=== PATIENT | female | born 1955 | race Caucasian/White ===

== ENCOUNTER 2025-04-03 10:27 | Inpatient (IN) | payer MEDICARE, SELFPAY ==
[2025-04-03] VITALS (25 sets, daily range): BP systolic 140–250; BP diastolic 82–126; PULSE 79–113; RESP 13–21; TEMP 36.4–36.9; O2SAT 96–99; BMI 39.6; BMI 34.2
--- NOTE | 2025-04-03 10:31 | CT_ITS ---
WS: [id number] CT HEAD TECHNIQUE: Noncontrast CT of the head obtained from the skullbase to the vertex. CLINICAL INFORMATION: Symptoms of acute stroke COMPARISON: None. DLP: [address] scans at [facility] use at least one of these dose optimization techniques: automated exposure control; mA and/or kV adjustment per patient size (includes targeted exams where dose is matched to clinical indication); or iterative reconstruction. FINDINGS: No evidence of intracranial hemorrhage or mass effect. Ventricular system and basal cisterns are patent. Mild to moderate small vessel changes with mild parenchymal volume loss. No extra-axial fluid collections. No evidence of mass or mass effect. Vascular calcification Paranasal sinuses and mastoid air cells are well aerated. .Normal visualized soft tissues. CT/CT head thrombolytic 93837 IMPRESSION: 1. No evidence of intracranial hemorrhage or mass effect. 2. Mild to moderate small vessel changes. Only mild parenchymal volume loss. 3. Vascular calcification. 4. No acute intracranial findings. Notified Ayan Antonio DO at 04/03/2025 10:55 AM.
[2025-04-03 10:38] LABS: Glucose Point of Care 345 mg/dL (70-110)
--- NOTE | 2025-04-03 10:38 | ED_ITS ---
HPI - Neuro Symptoms/Deficit 2 General: Chief Complaint: Neuro Symptoms/Deficit Stated Complaint: n/v dizziness Time Seen by Provider: 04/03/25 10:30 History of Present Illness: 69-year-old female presents to the emerg ency room with complaints of dizziness and nausea left-sided numbness. She states it began shortly after she got out of bed just before 9 AM this morning hour and a half prior to arrival here by ambulance. She has had TIAs in the past she is supposed to be on Plavix and aspirin but has not been taking those. Her biggest complaint is dizziness and nausea. Initial abbreviated NIH is 0. Associated symptoms: Deny chest pain Related Data Home Medications ?Medication ?Instructions ?Recorded ?Confirmed No Known Home Medications 04/03/2503/19 Allergies Allergy/AdvReac Type Severity Reaction Status Date / Time ibuprofen Allergy Unknown Verified 04/03/25 11:24 Penicillins Allergy Unknown Verified 04/03/25 11:24 Review of Systems 2 Const: Denies: fever(s) or chills Card: Denies: chest pain Resp: Denies: dyspnea GI: Denies: abdominal pain : Denies: dysuria, urinary frequency or urinary urgency Musc: Denies: neck pain or back pain Skin/Breast: Denies: rash PFSH ED 2 PFSH: Medical History (Updated 04/03/25 @ 17:16 by Ayan Antonio DO) 3 para 3 History of gastric ulcer in her 40s TIA (transient ischemic attack) Diabetes mellitus, type II Hypertension Surgical History (Updated 04/03/25 @ 13:41 by Lissette Collazo MD) History of x one Family History (Updated 04/03/25 @ 13:42 by Lissette Collazo MD) Father Stroke Mother Memory changes Hip fracture Social History (Updated 04/03/25 @ 13:44 by Lissette Collazo MD) Smoking and tobacco/nicotine status: former use of tobacco/nicotine Alcohol intake: never Substance/Drug Use: never Additional social history: Smoked for 2 years, years ago Relocated from [facility] to [place] in ~2023, lives with youngest daughter NIH stroke score 2 NIHSS: Level Of Consciousness - 1a: 0 Level Of Consciousness Questions - 1b: Both Correct Level Of Consciousness Commands - 1c: Both Correct Best Gaze - 2: Normal Visual Smith - 3: No Visual Loss Facial Palsy - 4: N ormal Motor Arm Right - 5: No Drift Motor Arm Left - 5: No Drift Motor Leg Right - 6: No Drift Motor Leg Left - 6: No Drift Limb Ataxia - 7: A bsent Sensory - 8: Mild To Moderate Loss Best Language - 9: No Aphasia Dysarthia - 10: Normal Extinction And Inattention - 11: 0 Score: Total Score: 1 Physical Exam 2 Const: COMMON NORMALS: no acute distress GENERAL APPEARANCE: cooperative and comfortable ORIENTATION/CONSCIOUSNESS: Yes awake, Yes oriented to person, Yes oriented to place and Yes oriented to time HENMT: COMMON NORMALS: normocephalic, atraumatic and hearing grossly normal bilaterally HEAD & SCALP: normocephalic and atraumatic Resp: COMMON NORMALS: normal respiratory effort, No retractions, No use of accessory muscles and clear to auscultation bilaterally AUSCULTATION: clear to auscultation bilaterally Cardio: COMMON NORMALS: regular rate, regular rhythm and No murmurs present (Cardio) RATE: regular rate RHYTHM: regular rhythm GI: COMMON NORMALS: Soft to palpation and No hepatosplenomegaly present A USCULTATION: Yes normoactive bowel sounds PALPATION: Yes Soft to palpation, No Tenderness to palpation present (GI), No Guarding due to palpation present (GI) and Yes No hepatosplenomegaly present Extremity: COMMON NORMALS: normal to inspection, capillary refill normal, no clubbing, cyanosis or edema, no calf tenderness and no pedal edema Neuro: SENSORIUM/ORIENTATION: Yes oriented to person, Yes oriented to place and Yes oriented to time Skin: COMMON NORMALS: no rashes or lesions noted GENERAL SKIN EXAM: no rashes or lesions noted Course 2 Vital Signs: Vital signs: Vital Signs Temperature 97.5 F L 04/03/25 14:35 Pulse Rate 104 H 04/03/25 15:05 Respiratory Rate 14 04/03/25 15:05 Blood Pressure 140/97 04/03/25 15:05 Pulse Oximetry 99 04/03/25 15:05 Oxygen Delivery Me thod Room Air 04/03/25 14:35 MDM - Neuro Symptoms/Deficit Medical Decision Making Patient's NIH was below the best I could get her with a 1. However I am concerned that she has a posterior stroke asked the parents to return call stroke team to see her via telehealth they felt that she had a little bit of left arm and left leg drift. She does definitely have some leftward nystagmus. She got some slurring of her words but this is after Compazine. Nayeli did recommend because of the symptoms of posterior stroke that we go ahead and give TNKase. There was a significant delay to getting of the TNKase to get her blood pressure controlled. Ultimately we were able to do so. Patient was given TNKase will admit to ICU discussed with hospitalist orders written Lab Data 04/03/25 10:15 04/03/25 10:[address] 04/03/25 10:31 IMPRESSION: 1. No evidence of intracranial hemorrhage or mass effect. 2. Mild to moderate small vessel changes. Only mild parenchymal volume loss. 3. Vascular calcification. 4. No acute intracranial findings. Notified Ayan Antonio DO at 04/03/2025 10:55 AM. Head/Neck CTA 04/03/25 12:49 IMPRESSION: Unremarkable head and neck CTA Laboratory Results WBC 9.06 10^3/uL (3.29-11.43) 04/03/25 10:15 RBC 4.98 10^6/uL (3.85-5.65) 04/03/25 10:15 Hgb 14.50 g/dL (11.27-16.99) 04/03/25 10:15 Hct 41.7 % (36-47) 04/03/25 10:15 MCV 83.7 fl (85-98) L 04/03/25 10:15 MCH 29.1 pg (27-33) 04/03/25 10:15 MCHC 34.8 g/dL (30-55) 04/03/25 10:15 RDW 12.6 % (12.1-15.1) 04/03/25 10:15 Plt Count 243 10^3/cmm (157-399) 04/03/25 10:15 MPV 12.7 fL (7.4-10.4) H 04/03/25 10:15 Neut % (Auto) 56.6 % 04/03/25 10:15 Lymph % (Auto) 35.8 % 04/03/25 10:15 [place] % (Auto) 4.3 % 04/03/25 10:15 Eos % (Auto) 2.2 % 04/03/25 10:15 Baso % (Auto) 0.2 % 04/03/25 10:15 Neut # (Auto) 5.13 10^3/uL (1.8-7.7) 04/03/25 10:15 Lymph # (Auto) 3.2 10^3/uL (0.8-4.8) 04/03/25 10:15 [place] # (Auto) 0.4 10^3/uL (0.2-0.9) 04/03/25 10:15 Eos # (Auto) 0.2 10^3/uL (0.0-0.8) 04/03/25 10:15 Baso # (Auto) 0.0 10^3/uL (0.0-0.1) 04/03/25 10:15 Nucleated RBC % (auto) 0 % 04/03/25 10:15 Nucleated RBCs # 0.0 /100WBC 04/03/25 10:15 PT 12.20 SECONDS (12.1-14.9) 04/03/25 10:15 INR 0.85 (0.8-1.2) 04/03/25 10:15 APTT 22.9 SECONDS (23.9-36.7) L 04/03/25 10:15 Sodium 138 mmol/L (136-145) 04/03/25 10:15 Potassium 3.5 mmol/L (3.5-5.1) 04/03/25 10:15 Chloride 102 mmol/L (98-107) 04/03/25 10:15 Carbon Dioxide 19 mmol/L (22-29) L 04/03/25 10:15 Anion Gap 20.5 (5-19) H 04/03/25 10:15 BUN 19 mg/dL (8-23) 04/03/25 10:15 Creatinine 0.7 mg/dL (0.5-0.9) 04/03/25 10:15 GFR Calculation 83.5 mL/min (90-130) L 04/03/25 10:15 Glucose 324 mg/dL (65-115) H 04/03/25 10:15 POC Glucose 345 mg/dL (70-110) H 04/03/25 10:33 Calculated Osmolality 301 mOsm/kg (285-295) H 04/03/25 10:15 Calcium 9.7 mg/dL (8.5-10.5) 04/03/25 10:15 Total Bilirubin 0.5 mg/dL (0.15-1.2) 04/03/25 10:15 AST 11 U/L (0-32) 04/03/25 10:15 ALT 14 U/L (0-33) 04/03/25 10:15 Alkaline Phosphatase 130 U/L (35-105) H 04/03/25 10:15 Total Protein 7.8 g/dL (6.6-8.7) 04/03/25 10:15 Albumin 4.3 g/dL (3.5-5.2) 04/03/25 10:15 Globulin 3.5 g/dL (1.3-4.6) 04/03/25 10:15 All radiology interpretation(s) finalized by discharge Discharge Plan Discharge Patient Disposition: Admitted As Inpatient Admit Provider: Lissette Collazo Clinical Impression: Posterior circulation stroke, Hypertension, Diabetes mellitus, type II Condition: Stable Coding Level of Care Code ED Ripening Room Operator for Elise Rhoades
[2025-04-03 10:39] LABS: Basophils % 0.2 %; Eosinophils # 0.2 10^3/uL (0.0-0.8); Eosinophils % 2.2 %; Hematocrit 41.7 % (36-47); Lymphocytes # 3.2 10^3/uL (0.8-4.8); Lymphocytes % 35.8 %; Mean Corpuscular HGB Conc 34.8 g/dL (30-55); Mean Corpuscular Hemoglobin 29.1 pg (27-33); Mean Corpuscular Volume 83.7 fl (85-98); Mean Platelet Volume 12.7 fL (7.4-10.4); Monocytes # 0.4 10^3/uL (0.2-0.9); Monocytes % 4.3 %; Neutrophils # 5.13 10^3/uL (1.8-7.7); Neutrophils % 56.6 %; Nucleated Red Blood Cells % 0 %; Platelet Count 243 10^3/cmm (157-399); Red Blood Count 4.98 10^6/uL (3.85-5.65); Red Cell Distribution Width 12.6 % (12.1-15.1); White Blood Count 9.06 10^3/uL (3.29-11.43)
--- NOTE | 2025-04-03 10:52 | ECG_ITS ---
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 Measurements Intervals [place] Rate: 84 P: 63 NC: 171 QRS: -30 QRSD: 95 T: 63 QT: 393 QTc: 467 Interpretive Statements SINUS RHYTHM BORDERLINE LEFT AXIS DEVIATION [QRS AXIS < -20] No previous ECG available for comparison Electronically Signed On 04-03-2025 21:57:30 CDT by Cuauhtemoc Peace M.D. [email or web address]
[2025-04-03 11:01] LABS: INR 0.85 (0.8-1.2)
[2025-04-03 11:02] LABS: Partial Thromboplastin Time 22.9 SECONDS (23.9-36.7)
--- NOTE | 2025-04-03 11:05 | DCPLANNER ---
spoke to [facility] tele stroke at 1105. gave patient information and they said they would call back with
[2025-04-03 11:07] LABS: Alanine Aminotransferase 14 U/L (0-33); Albumin Level 4.3 g/dL (3.5-5.2); Alkaline Phosphatase 130 U/L (35-105); Anion Gap 20.5 (5-19); Aspartate Amino Transferase 11 U/L (0-32); Blood Urea Nitrogen 19 mg/dL (8-23); Calcium 9.7 mg/dL (8.5-10.5); Carbon Dioxide 19 mmol/L (22-29); Chloride 102 mmol/L (98-107); Creatinine Clr Calc Pharmacy 74.7961; Globulin 3.5 g/dL (1.3-4.6); Glomerular Filtration Rate 83.5 mL/min (90-130); Glucose 324 mg/dL (65-115); Osmolality Calculated 301 mOsm/kg (285-295); Potassium 3.5 mmol/L (3.5-5.1); Sodium 138 mmol/L (136-145); Total Bilirubin 0.5 mg/dL (0.15-1.2); Total Protein 7.8 g/dL (6.6-8.7)
[2025-04-03] MEDS: prochlorperazine 10 mg/2 mL Inj IVP (11:29)
[2025-04-03] MEDS: hyDRALAzine 20 mg/mL INJ 1 mL 10 MG IVP (11:29)
[2025-04-03] MEDS: labetalol 5 mg/mL SDV 20mL 10 MG IVP (11:54)
--- NOTE | 2025-04-03 12:09 | PC.PHAR ---
Pts' daughter showed rx bottles (all are old fills) form Meloxicam 7.5mg daily, Simvastatin 40 mg daily, and Metformin 1000mg bid. Pt states she moved here and has not been established anywhere and has not taken any medications for 3 to 4 months. I did not add these medications due to them being so old.
[2025-04-03] MEDS: nicardipine 20 MG/200 ML PREMIX 50 MG IV (12:17)
--- NOTE | 2025-04-03 12:31 | PC.NURSE ---
PROVIDER AWARE OF BLOOD PRESSURE AND ORDERED TO GIVE TNKASE DUE TO BEING ON CARDENE DRIP.
[2025-04-03] MEDS: tenecteplase 50mg Kit (STROKE) 25 MG IVP (12:32)
--- NOTE | 2025-04-03 12:41 | PC.NURSE ---
VERBAL ORDER FROM DR. SANTACRUZ TO DECREASE CARDENE TO 2.5 MG DUE TO BP OF 148/91.
--- NOTE | 2025-04-03 12:49 | CT_ITS ---
WS: [id number] CTA HEAD AND NECK TECHNIQUE: Contrast enhanced CTA of the head and neck with coronal and sagittal reformatted images and maximum intensity projection (MIP) images. NASCET criteria utilized. CLINICAL INFORMATION: acute CVA COMPARISON: None. DLP: 80.[address] scans at [facility] use at least one of these dose optimization techniques: automated exposure control; mA and/or kV adjustment per patient size (includes targeted exams where dose is matched to clinical indication); or iterative reconstruction. FINDINGS: RIGHT: Tortuous RIGHT cervical ICA. No significant stenosis. LEFT: Tortuous LEFT cervical ICA. No significant stenosis. LEFT dominant vertebral artery. Smaller but patent RIGHT vertebral artery. Basilar artery is patent. INTRACRANIAL CTA: Basilar artery is patent. 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 Both ICAs are patent at the skull base. Patent anterior communicating artery. Normal vascularity to the [place] territory. Normal vascularity to the MCA territories bilaterally. No evidence of proximal flow-limiting stenosis. CT/CT angio headne* [id number] IMPRESSION: Unremarkable head and neck CTA
--- NOTE | 2025-04-03 13:01 | PM.HP ---
Providers/Chief Complaint Admitting Physician: Lissette Collazo MD Primary Care Provider: none Chief Complaint: n/v dizziness History of Present Illness Nedra Alvarez is a 69 year old female with a history of hypertension, diabetes mellitus, and prior TIA (transient ischemic attack) presenting with sudden onset dizziness and vomiting that began approximately at 9 a.m. today She reports that symptoms started after waking up and performing normal morning activities, including opening the door for fresh air and hugging her dog. The dizziness rapidly worsened, leading to vomiting at the kitchen sink which was nearby. She had difficulty walking to the sink, having to hold on to things, and was unable to walk in a straight line. There was no report of double vision or other vision changes, but the patient noted left arm numbness (initially described as left elbow, but clarified as the whole arm down to the the hand) and later developed left leg numbness and weakness, which began in the ambulance. Both left arm and leg symptoms persist. Mrs Alvarez also experienced transient speech difficulty (thick-tongued) about 15?20 minutes prior to my interview in the ER, but this has since resolved. The patient denies recent headaches, chest pain, difficulty breathing, or other episodes of nausea or vomiting prior to today. There is a history of scant specs of blood seen on tissue when wiping recently, attributed to hemorrhoids, and a remote history of a bleeding gastric ulcer in her 40s. She reports frequent urination at night (usually once, sometimes twice), which has been ongoing for a while. No recent changes in bowel movements, no blood in stool except for the recent minor rectal bleeding, and no recent joint swelling or lower extremity edema. The patient reports sleeping a lot, which is described as typical for their family. Mrs Alvarez moved to the [place] from [place], [place], last March or April and lives with her youngest daughter. who is here with her. The patient has not established primary care locally and has not been taking prescribed medications since October due to concerns about running out and potential side effects. Her father had strokes when alive. Review of Systems General: Reports: Other (ROS as per HPI or as otherwise noted here) Medications/Allergies Home Medications ?Medication ?Instructions ?Recorded ?Confirmed ?Last Taken ?Type No Known Home Medications 04/03/25 04/03/25 Unknown History Allergies Allergy/AdvReac Type Severity Reaction Status Date / Time ibuprofen Allergy Unknown Verified 04/03/25 11:24 Penicillins Allergy Unknown Verified 04/03/25 11:24 PFSH Acute PFSH: Medical History (Updated 04/03/25 @ 20:12 by Lissette Collazo MD) 3 para 3 History of gastric ulcer in her 40s TIA (transient ischemic attack) Diabetes mellitus, type II Hypertension Surgical History (Updated 04/03/25 @ 13:41 by Lissette Collazo MD) History of x one Family History (Updated 04/03/25 @ 13:42 by Lissette Collazo MD) Father Stroke Mother Memory changes Hip fracture Social History (Updated 04/03/25 @ 13:44 by Lissette Collazo MD) Smoking and tobacco/nicotine status: former use of tobacco/nicotine Alcohol intake: never Substance/Drug Use: never Additional social history: Smoked for 2 years, years ago Relocated from [facility] to [place] in ~2023, lives with youngest daughter Vitals/I&O/Wt Last Vital Signs Temp 97.6 F 04/03/25 10:29 Pulse 96 04/03/25 12:48 Resp 20 H 04/03/25 12:48 BP 164/126 04/03/25 12:48 Pulse Ox 98 04/03/25 12:20 O2 Del Method Room Air 04/03/25 12:20 04/02/25 04/03/25 04/03/25 22:59 06:59 14:59 Intake Total 19.167 / 19.167 Balance 19.167 / 19.167 Weight last 48 hrs Weight 98.43 kg Physical Exam Narrative: Patient is awake and able to provide history but lying in a darkened room with her eyes closed and keeping her head straight. She is lying flat on her back. She can open her eyes for short periods of time but prefers to keep them closed. She is alert and oriented to person, place and situation. Eyes are deviated to the right with some nystagmus noted. Decreased acuity in the right visual smith without turning her head. Face with loss of left-sided facial creases at rest that is not evident when she smiles. Neck is supple. Lungs are clear to auscultation. Cardiovascular exam reveals a regular rate and rhythm. No murmurs noted. Abdomen is soft, nontender with positive bowel sounds. Extremities no pitting edema. Left toe is upgoing, right downgoing left lower extremity drift is noted left lower extremity is weaker than right lower extremity. Sensation is decreased to light touch in the left lower extremity compared to the right up to the thigh. Decreased sensation also noted in the left upper extremity versus the right with slightly decreased left hand assembler type bar and segment. No drift noted to the upper extremities. No abnormal movements. No vomiting during my examination but has had some Compazine. NIH stroke scale score per my examination 6. Data 04/03/25 10:15 04/03/25 10:15 Other Labs: Radiology Impressions Head CT 04/03/25 10:31 IMPRESSION: 1. No evidence of intracranial hemorrhage or mass effect. 2. Mild to moderate small vessel changes. Only mild parenchymal volume loss. 3. Vascular calcification. 4. No acute intracranial findings. Notified Ayan Antonio DO at 04/03/2025 10:55 AM. Laboratory Results WBC 9.06 10^3/uL (3.29-11.43) 04/03/25 10:15 RBC 4.98 10^6/uL (3.85-5.65) 04/03/25 10:15 Hgb 14.50 g/dL (11.27-16.99) 04/03/25 10:15 Hct 41.7 % (36-47) 04/03/25 10:15 MCV 83.7 fl (85-98) L 04/03/25 10:15 MCH 29.1 pg (27-33) 04/03/25 10:15 MCHC 34.8 g/dL (30-55) 04/03/25 10:15 RDW 12.6 % (12.1-15.1) 04/03/25 10:15 Plt Count 243 10^3/cmm (157-399) 04/03/25 10:15 MPV 12.7 fL (7.4-10.4) H 04/03/25 10:15 Neut % (Auto) 56.6 % 04/03/25 10:15 Lymph % (Auto) 35.8 % 04/03/25 10:15 [place] % (Auto) 4.3 % 04/03/25 10:15 Eos % (Auto) 2.2 % 04/03/25 10:15 Baso % (Auto) 0.2 % 04/03/25 10:15 Neut # (Auto) 5.13 10^3/uL (1.8-7.7) 04/03/25 10:15 Lymph # (Auto) 3.2 10^3/uL (0.8-4.8) 04/03/25 10:15 [place] # (Auto) 0.4 10^3/uL (0.2-0.9) 04/03/25 10:15 Eos # (Auto) 0.2 10^3/uL (0.0-0.8) 04/03/25 10:15 Baso # (Auto) 0.0 10^3/uL (0.0-0.1) 04/03/25 10:15 Nucleated RBC % (auto) 0 % 04/03/25 10:15 Nucleated RBCs # 0.0 /100WBC 04/03/25 10:15 PT 12.20 SECONDS (12.1-14.9) 04/03/25 10:15 INR 0.85 (0.8-1.2) 04/03/25 10:15 APTT 22.9 SECONDS (23.9-36.7) L 04/03/25 10:15 Sodium 138 mmol/L (136-145) 04/03/25 10:15 Potassium 3.5 mmol/L (3.5-5.1) 04/03/25 10:15 Chloride 102 mmol/L (98-107) 04/03/25 10:15 Carbon Dioxide 19 mmol/L (22-29) L 04/03/25 10:15 Anion Gap 20.5 (5-19) H 04/03/25 10:15 BUN 19 mg/dL (8-23) 04/03/25 10:15 Creatinine 0.7 mg/dL (0.5-0.9) 04/03/25 10:15 GFR Calculation 83.5 mL/min (90-130) L 04/03/25 10:15 Glucose 324 mg/dL (65-115) H 04/03/25 10:15 POC Glucose 345 mg/dL (70-110) H 04/03/25 10:33 Calculated Osmolality 301 mOsm/kg (285-295) H 04/03/25 10:15 Calcium 9.7 mg/dL (8.5-10.5) 04/03/25 10:15 Total Bilirubin 0.5 mg/dL (0.15-1.2) 04/03/25 10:15 AST 11 U/L (0-32) 04/03/25 10:15 ALT 14 U/L (0-33) 04/03/25 10:15 Alkaline Phosphatase 130 U/L (35-105) H 04/03/25 10:15 Total Protein 7.8 g/dL (6.6-8.7) 04/03/25 10:15 Albumin 4.3 g/dL (3.5-5.2) 04/03/25 10:15 Globulin 3.5 g/dL (1.3-4.6) 04/03/25 10:15 Urine Color Yellow (Yellow) 04/03/25 12:55 Urine Appearance Clear (CLEAR) 04/03/25 12:55 Urine pH 5.0 (5-7) 04/03/25 12:55 Ur Specific [place] 1.019 (1.005-1.030) 04/03/25 12:55 Urine Protein Negative (Negative) 04/03/25 12:55 Urine Glucose (UA) 3+ (Normal) H 04/03/25 12:55 Urine Ketones 1+ (Negative) H 04/03/25 12:55 Urine Blood Negative (Negative) 04/03/25 12:55 Urine Nitrate Negative (Negative) 04/03/25 12:55 Urine Bilirubin Negative (Negative) 04/03/25 12:55 Urine Urobilinogen 0.2 mg/dL (Negative) 04/03/25 12:55 Ur Leukocyte Esterase 2+ (Negative) A 04/03/25 12:55 Urine RBC 0-2 /hpf (0-2) 04/03/25 12:55 Urine WBC 11-20 /hpf (0-5) H 04/03/25 12:55 Ur Squamous Epith Cells 6-10 /hpf (0-5) 04/03/25 12:55 Amorphous Sediment Not Reportable 04/03/25 12:55 Urine Bacteria 1+ /hpf (NONE) H 04/03/25 12:55 Hyaline Casts 1.21 /lpf 04/03/25 12:55 Urine Opiates Screen Negative ng/mL (Negative) 04/03/25 12:55 Ur Barbiturates Screen Negative ng/mL (Negative) 04/03/25 12:55 Ur Phencyclidine Scrn Negative ng/mL (Negative) 04/03/25 12:55 Ur Amphetamines Screen Negative ng/mL (Negative) 04/03/25 12:55 U Benzodiazepines Scrn Negative ng/mL (Negative) 04/03/25 12:55 Urine Cocaine Screen Negative ng/mL (Negative) 04/03/25 12:55 U Marijuana (THC) Screen Negative ng/mL (Negative) 04/03/25 12:55 EKG 1: I personally reviewed and interpreted this EKG as follows: My Interpretation: No acute ST segment changes, normal sinus rhythm A&P Assessment and plan (1) CVA (cerebral vascular accident): The patient presented with sudden onset dizziness, vomiting, left-sided numbness and weakness. She also had transient speech difficulty though that could have been from compazine administration. The clinical picture is consistent with an acute ischemic stroke, likely involving the posterior circulation given the dizziness and vomiting. The patient has a history of TIA and multiple vascular risk factors. She has not had primary care access or medication for her hypertension, diabetes for about 6 months. - Admit to ICU for close monitoring - S/P TNK after blood pressure management with nicardipine initiated - Maintain systolic blood pressure in the range of 160?185 mmHg per protocol - Repeat head CT scan tomorrow to assess for bleeding - Obtain echocardiogram to evaluate cardiac source of embolism - Obtain carotid imaging to assess for vascular disease - Check lipid panel and A1c - Initiate antiplatelet therapy with clopidogrel; has ibuprofen allergy - Monitor for signs of bleeding, including hemorrhoidal and mucosal bleeding - Serial neuro examinations - PT/OT/ST evaluations - Symptomatic management of nausea and dizziness as needed - Reviewed plans of care and provided education to patient and daughter in the room (2) Hypertension: The patient has a history of primary hypertension, previously managed with losartan, but has not been taking antihypertensive medications since October. Upon presentation with hypertensive urgency/emergency in the context of acute stroke, and required nicardipine drip ultimately after initial labetalol to allow for TNKase administration. Typically allow permissive hypertension to optimize cerebral perfusion. Uncontrolled hypertension is a significant risk factor for stroke. - Current goal to maintain a systolic range of 160?185 mmHg during the acute period post-thrombolysis - Monitor blood pressure closely and titrate nicardipine as needed to maintain target range - Pending results of swallow evaluation will consider initiation of oral losartan which she had previously taken to manage her blood pressure (3) Diabetes mellitus, type II: The patient has a history of diabetes mellitus, previously advised to take metformin but was not adherent due to concerns about side effects. The patient has not been on any diabetes medication since October and has been attempting dietary management. Diabetes, uncontrolled, is a significant risk factor for stroke recurrence and will require ongoing management. - Monitor blood glucose during hospitalization - Sliding scale low dose insulin for now - Check A1c - Reassess outpatient diabetes management options after acute stroke period - Recommend follow-up with primary care for long-term diabetes management (4) Hemorrhoids: Mrs Alvarez reports recent minor rectal bleeding when wiping recently, attributed to hemorrhoids. There is a remote history of a bleeding ulcer in her 40s. She also reports bleeding from gums when brushing teeth lately. - Monitor for increased rectal bleeding and gum bleeding - Advise gentle oral hygiene to minimize gum trauma - Nursing staff to observe for signs of bleeding and notify provider if bleeding increases Plan Borderline AG with glucosuria and ketonuria, elevated BS - IVFs, recheck labs in am; could be related to vomiting and GI losses but with untreated diabetes at risk for DKA Elevated Alkaline phosphatase - recheck LFTs in am - Admit to ICU - SCDs for DVT prophylaxis after TNKase - Peripheral IVs - Telemetry monitoring - IVFs - Recommended establishing care with a primary care provider after discharge - Encouraged resumption of management of hypertension and diabetes to decrease risk of stroke recurrence - Lifestyle modifications for stroke prevention reviewed briefly and stroke education provided - Full Code PDMP PDMP Reviewed: Last Reviewed 04/03/25 20:13 by Lissette Collazo MD Attestations Medical Necessity Statement*: Anticipated stay greater than two midnights in this patient presenting with what appears to be posterior circulation stroke and is status post TNKase. In addition she had hypertensive emergency necessitating initiation of nicardipine drip. She has a history of hypertension and diabetes and has not been on management since October of this year. She has no primary care established locally after relocating about a year ago. In addition she has elevated blood sugar and borderline anion gap elevation from either GI losses or potential early DKA. Without acute care management as described at high risk of continued clinical decline from stroke, uncontrolled hypertension and untreated diabetes ruptured including possibility of . Requires ICU level care currently with continuous nifedipine infusion, close blood pressure monitoring to allow titration, usual post TNKase neurological monitoring and associated post stroke workup along with IV fluids and repeat electrolytes in addition to telemetry monitoring. and High Time for a total of 90 minutes, includes reviewing past or interval history, examining/interviewing patient, placing orders, counseling patient/family/other support, discussing plan of care with staff and documenting encounter Diagnoses Cerebrovascular accident (CVA) due to thrombosis of right posterior cerebral artery I63.331 CVA mechanism: thrombosis Precerebral and cerebral artery: posterior cerebral artery Laterality of affected vessel: right Other secondary hypertension I15.8 Hypertension type: other secondary hypertension Type 2 diabetes mellitus with hyperglycemia, without long-term current use of insulin E11.65 Diabetes mellitus terminal gauger insulin use: without penitentiary use Diabetes mellitus complication status: with hyperglycemia Grade I hemorrhoids K64.0 Hemorrhoid type: first degree NIH stroke score NIHSS Level Of Consciousness - 1a: 0 Level Of Consciousness Questions - 1b: Both Correct Level Of Consciousness Commands - 1c: Both Correct Best Gaze - 2: Partial Gaze Palsy Visual Smith - 3: Partial Hemianopia Facial Palsy - 4: Normal Motor Arm Right - 5: No Drift Motor Arm Left - 5: Drift Motor Leg Right - 6: No Drift Motor Leg Left - 6: Effort Against [place] Limb Ataxia - 7: Absent Sensory - 8: Mild To Moderate Loss (Left upper and lower) Best Language - 9: No Aphasia Dysarthia - 10: Normal Extinction And Inattention - 11: 0 Score Total Score: 6
--- NOTE | 2025-04-03 13:12 | PC.NURSE ---
PER DR. BAZAN, LOWER CARDENE TO 2 MG DUE TO TARGET RANGE FOR BP
[2025-04-03 13:20] LABS: Bilirubin Urine Negative (Negative); Blood Urine Negative (Negative); Glucose Urine UA 3+ (Normal); Ketones Urine 1+ (Negative); Leukocyte Esterase Urine 2+ (Negative); Nitrate Urine Negative (Negative); Protein Urine Negative (Negative); Specific Gravity, Urine 1.019 (1.005-1.030); Urine Appearance Clear (CLEAR); Urine Color Yellow (Yellow); Urobilinogen Urine 0.2 mg/dL (Negative)
[2025-04-03 13:22] LABS: Add Urine Microscopic? YES; Bacteria Urine 1+ /hpf; Hyaline Casts Urine 1.21 /lpf; RBC Urine 0-2 /hpf (0-2)
[2025-04-03 13:28] LABS: Amphetamines Screen Urine Negative (Negative); Barbiturates Screen Urine Negative (Negative); Benzodiazepines Screen Urine Negative (Negative); Cocaine Screen Urine Negative (Negative); Opiate Screen Urine Negative (Negative); PCP Screen Urine Negative (Negative); THC Screen Urine Negative (Negative)
[2025-04-03] MEDS: iohexol 350 mg/mL 500 mL Btl (per mL) IV (13:48)
--- NOTE | 2025-04-03 14:13 | USCV_ITS ---
Nedra Alvarez Age: 69 Gender: F : 1955 Exam Date: 04/03/2025 15:03 Ordering Phys: Lissette Collazo MD Technologist: Exam Location: [facility] [place] Indication: cva BP: 140 / 97 HR: 97 Rhythm: Sinus Technical Quality: Adequate MEASUREMENTS (Male / Female) Normal Values 2D ECHO LV Diastolic Diameter PLAX 3.5 cm 4.2 - 5.9 / 3.9 - 5.3 cm IVS Diastolic Thickness 1.3 cm 0.6 - 1.0 / 0.6 - 0.9 cm IVS Systolic Thickness 1.5 cm LVPW Diastolic Thickness 1.1 cm 0.6 - 1.0 / 0.6 - 0.9 cm LVPW Systolic Thickness 1.3 cm LVOT Diameter 2.1 cm LV Ejection Fraction 2D Teich 68.2 % LV Ejection Fraction MOD 4C 63.0 % LV Ejection Fraction MOD 2C 68.4 % LV Ejection Fraction 2C AL 68.0 % LA Diameter 3.2 cm RA Systolic Volume 4C AL 22.5 ml RA Systolic Volume 4C MOD 22.0 ml Aorta at Sinotubular Diameter 2.9 cm IVC Diameter 1.4 cm M-MODE LA Ao Ratio MM 1.2 AV Cusp Separation MM 2.4 cm DOPPLER AV Peak Velocity 159.0 cm/s LVOT Peak Velocity 116.0 cm/s AV Area Cont Eq vti 3.3 cm squared AV Area Cont Eq pk 2.4 cm squared MV Peak Velocity 134.0 cm/s MV Area PHT 5.0 cm squared Mitral E to A Ratio 0.6 TV Peak Velocity 184.5 cm/s TR Peak Velocity 201.0 cm/s TR Peak Gradient 16.2 mmHg TV Peak E Velocity 91.0 cm/s PV Peak Velocity 111.0 cm/s FINDINGS Left Ventricle Left ventricle is normal size. LV systolic function is normal with EF of 65-70%. No regional wall motion abnormalities are seen. Moderate left ventricular hypertrophy. Grade 1 diastolic dysfunction. Right Ventricle Normal in size and function Right Atrium Normal in size Left Atrium Normal in size Mitral Valve Structurally normal mitral valve. Aortic Valve Structurally normal aortic valve. No significant stenosis or regurgitation. Tricuspid Valve Mild tricuspid regurgitation. Pulmonary artery systolic pressure is normal Pulmonic Valve Not well visualized Pericardium Normal Aorta Normal in size IVC Appears to be normal CONCLUSIONS LV systolic function is normal with EF of 65-70% Moderate left ventricular hypertrophy Grade 1 diastolic dysfunction Mild tricuspid regurgitation Parth Arreola MD (Electronically Signed) Final Date: 05 April 2025 11:43 S
--- NOTE | 2025-04-03 15:13 | PC.NURSE ---
Patient's only concerns were that they are not able to swallow, tingling in their left peripheral extremities, and twitching in their right eye.
--- NOTE | 2025-04-03 15:41 | PC.NURSE ---
WASTED 5 ML OF TNKASE WITH AB [place]RA[place].
--- NOTE | 2025-04-03 16:19 | PC.NURSE ---
sales planning coordinator rounds @ [id number]- gave patient stroke education book
[2025-04-03 17:45] LABS: Glucose Point of Care 430 mg/dL (70-110)
[2025-04-03] MEDS: sodium chlor 0.45% +KCl 20 mEq 20 MEQ/1,000 ML BAG 75 MEQ IV (17:46)
[2025-04-03] MEDS: insulin lispro 100 unit/1 mL SUBCUT ×2 (17:46→21:47)
--- NOTE | 2025-04-03 18:55 | PC.NURSE ---
Patient only has one IV after one of the Ivs went bad in the CT scan. Because of the precautions for bleeding because of the TnKase administration another IV was not started.
[2025-04-03 19:44] LABS: Glucose Point of Care 349 mg/dL (70-110)
--- NOTE | 2025-04-03 21:12 | PC.NURSE ---
Dr. Collazo gave verbal orders to stop 0.45% NS 20 meq potassium due to incompatibility with nicardipine and pt only having one IV. New verbal order for 0.45% NS. She also agreed that the pt needs another IV and one attempt can be made to start a new IV but no more than one attempt.
[2025-04-03] MEDS: nicardipine 20 MG/200 ML PREMIX 25 MG IV (21:27)
[2025-04-03 21:46] LABS: Glucose Point of Care 348 mg/dL (70-110)
[2025-04-03] MEDS: sodium chloride 0.45% 1,000 ML 75 ML IV (21:49)
[2025-04-04] VITALS (49 sets, daily range): BP systolic 141–202; BP diastolic 74–121; PULSE 85–125; RESP 12–27; TEMP 36.6–38.3; O2SAT 95–99
[2025-04-04 04:01] LABS: Basophils % 0.1 %; Hematocrit 42.2 % (36-47); Lymphocytes # 1.6 10^3/uL (0.8-4.8); Lymphocytes % 11.7 %; Mean Corpuscular HGB Conc 34.4 g/dL (30-55); Mean Corpuscular Hemoglobin 28.5 pg (27-33); Mean Corpuscular Volume 82.9 fl (85-98); Mean Platelet Volume 12.6 fL (7.4-10.4); Monocytes # 0.6 10^3/uL (0.2-0.9); Monocytes % 4.6 %; Neutrophils # 11.63 10^3/uL (1.8-7.7); Neutrophils % 83.2 %; Nucleated Red Blood Cells % 0 %; Platelet Count 306 10^3/cmm (157-399); Red Blood Count 5.09 10^6/uL (3.85-5.65); Red Cell Distribution Width 12.8 % (12.1-15.1); White Blood Count 13.98 10^3/uL (3.29-11.43)
[2025-04-04 04:12] LABS: Estmated Average Glucose 269
[2025-04-04 04:22] LABS: Alanine Aminotransferase 13 U/L (0-33); Albumin Level 4.4 g/dL (3.5-5.2); Alkaline Phosphatase 108 U/L (35-105); Aspartate Amino Transferase 11 U/L (0-32); Blood Urea Nitrogen 18 mg/dL (8-23); Calcium 9.9 mg/dL (8.5-10.5); Carbon Dioxide 20 mmol/L (22-29); Chloride 102 mmol/L (98-107); Creatinine Clr Calc Pharmacy 69.0091; Globulin 3.6 g/dL (1.3-4.6); Glomerular Filtration Rate 71.5 mL/min (90-130); Glucose 306 mg/dL (65-115); Magnesium 1.8 mg/dL (1.7-2.3); Osmolality Calculated 297 mOsm/kg (285-295); Phosphorus 3.6 mg/dL (2.5-4.5); Sodium 137 mmol/L (136-145)
[2025-04-04 04:52] LABS: Chol HDL Ratio 5.44 mg/dL (0.0-4.40); Cholesterol 261 mg/dL (0-200); HDL Cholesterol 48 mg/dL (60-100); LDL Cholesterol Calculated 168 mg/dL (50-129); Triglycerides 224 mg/dL (0-150)
--- NOTE | 2025-04-04 04:56 | ECG_ITS ---
[facility] 2025-04-04 Pat Name: Nedra lAvarez Department: Room: [facility] Gender: Female Prescription Clerk: : 1955 Requested By: uLz Shelley Order Number: [id number] Annie MD: Cuauhtemoc Peace M.D. Measurements Intervals [place] Rate: 142 P: 70 MT: 112 QRS: -58 QRSD: 86 T: 76 QT: 370 QTc: 569 Interpretive Statements SINUS TACHYCARDIA WITH SHORT MT INTERVAL, POSSIBLE ATRIAL FLUTTER LEFT AXIS DEVIATION [QRS AXIS < -30] Compared to ECG 04/03/2025 10:52:09 Sinus rhythm no longer present Electronically Signed On 04-06-2025 06:19:50 CDT by Cuauhtemoc Peace M.D. [email or web address]
[2025-04-04] MEDS: nicardipine 20 MG/200 ML PREMIX 25 MG IV ×2 (05:05→23:16)
[2025-04-04 05:41] LABS: Total Bilirubin 0.7 mg/dL (0.15-1.2)
[2025-04-04 07:54] LABS: Glucose Point of Care 329 mg/dL (70-110)
[2025-04-04] MEDS: insulin lispro 100 unit/1 mL SUBCUT ×4 (08:36→22:48)
--- NOTE | 2025-04-04 09:00 | CT_ITS ---
WS: [id number] CT HEAD TECHNIQUE: Noncontrast CT of the head obtained from the skullbase to the vertex. CLINICAL INFORMATION: acute stroke COMPARISON: None. DLP: 1084.[address] scans at [facility] use at least one of these dose optimization techniques: automated exposure control; mA and/or kV adjustment per patient size (includes targeted exams where dose is matched to clinical indication); or iterative reconstruction. FINDINGS: No evidence of intracranial hemorrhage or mass effect. Ventricular system and basal cisterns are patent. Mild to moderate small vessel changes with mild parenchymal volume loss. No extra-axial fluid collections. No evidence of mass or mass effect. Vascular calcification Paranasal sinuses and mastoid air cells are well aerated. .Normal visualized soft tissues. CT/CT head wo con* [id number] IMPRESSION: 1. No evidence of intracranial hemorrhage or mass effect. 2. No acute intracranial findings. 3. Vascular calcification. 4. No change is appreciated since 04/03/2025.
--- NOTE | 2025-04-04 09:26 | PC.NURSE ---
spa coordinator rounds at 0815- patient resting quietly in room, patient updates appreciated by primary, RN
[2025-04-04] MEDS: sodium chloride 0.45% 1,000 ML 75 ML IV (11:44)
[2025-04-04 12:32] LABS: Glucose Point of Care 186 mg/dL (70-110)
--- NOTE | 2025-04-04 15:43 | PM.PN ---
Subjective Subjective: seen this am has nystagmus looking to the right right sided 6th nerve palsy numbness present on left side states she feels she is having double vision off nicardipine gtt now Vitals/I&O/Wt Last Vital Signs Temp 98.9 F 04/04/25 08:30 Pulse 108 H 04/04/25 14:00 Resp 16 04/04/25 14:00 BP 152/91 04/04/25 14:00 Pulse Ox 98 04/04/25 14:00 O2 Del Method Room Air 04/04/25 14:00 04/04/25 04/04/25 04/04/25 06:59 14:59 22:59 Intake Total 227.083 / 669.670 4758 / 1000 Output Total 300 / 1200 Balance -72.917 / -437.339 4370 / 1000 Weight last 48 hrs Weight 84.5 kg Weight 85 kg Weight 98.43 kg Physical Exam Narrative: General: Alert oriented x3, patient seen laying in bed appearing comfortable at this time. Reports double vision. HEENT: Normocephalic, atraumatic, EOMI, breathing breathing room air. Cardio: Regular rate rhythm, normal S1-S2, Respiratory: Clear to auscultation bilaterally no wheezes no rhonchi GI: Abdomen soft, nontender, nondistended, bowel sounds + Extremities: No edema bilateral lower extremities Neuro: Reports double vision, lateral rectus palsy right side, nystagmus when patient looks to the right, left-sided numbness slightly present., Activities Volunteer strength bilateral upper extremities equal, no drift noted to the upper extremities. No abnormal movements. Face appears symmetrical, no facial droop noted Data 04/04/25 03:40 04/04/25 03:40 A&P Assessment and plan (1) CVA (cerebral vascular accident): The patient presented with sudden onset dizziness, vomiting, left-sided numbness and weakness. She also had transient speech difficulty though that could have been from compazine administration. The clinical picture is consistent with an acute ischemic stroke, likely involving the posterior circulation given the dizziness and vomiting. The patient has a history of TIA and multiple vascular risk factors. She has not had primary care access or medication for her hypertension, diabetes for about 6 months. - Admit to ICU for close monitoring - S/P TNK after blood pressure management with nicardipine initiated - Maintain systolic blood pressure in the range of 160?185 mmHg per protocol - Repeat head CT scan tomorrow to assess for bleeding - Obtain echocardiogram to evaluate cardiac source of embolism - Obtain carotid imaging to assess for vascular disease - Check lipid panel and A1c - Initiate antiplatelet therapy with clopidogrel; has ibuprofen allergy - Monitor for signs of bleeding, including hemorrhoidal and mucosal bleeding - Serial neuro examinations - PT/OT/ST evaluations - Symptomatic management of nausea and dizziness as needed - Reviewed plans of care and provided education to patient and daughter in the room (2) Hypertension: The patient has a history of primary hypertension, previously managed with losartan, but has not been taking antihypertensive medications since October. Upon presentation with hypertensive urgency/emergency in the context of acute stroke, and required nicardipine drip ultimately after initial labetalol to allow for TNKase administration. Typically allow permissive hypertension to optimize cerebral perfusion. Uncontrolled hypertension is a significant risk factor for stroke. - Current goal to maintain a systolic range of 160?185 mmHg during the acute period post-thrombolysis - Monitor blood pressure closely and titrate nicardipine as needed to maintain target range - Pending results of swallow evaluation will consider initiation of oral losartan which she had previously taken to manage her blood pressure (3) Diabetes mellitus, type II: The patient has a history of diabetes mellitus, previously advised to take metformin but was not adherent due to concerns about side effects. The patient has not been on any diabetes medication since October and has been attempting dietary management. Diabetes, uncontrolled, is a significant risk factor for stroke recurrence and will require ongoing management. - Monitor blood glucose during hospitalization - Sliding scale low dose insulin for now - Check A1c - Reassess outpatient diabetes management options after acute stroke period - Recommend follow-up with primary care for long-term diabetes management (4) Hemorrhoids: Mrs Alvarez reports recent minor rectal bleeding when wiping recently, attributed to hemorrhoids. There is a remote history of a bleeding ulcer in her 40s. She also reports bleeding from gums when brushing teeth lately. - Monitor for increased rectal bleeding and gum bleeding - Advise gentle oral hygiene to minimize gum trauma - Nursing staff to observe for signs of bleeding and notify provider if bleeding increases Plan Borderline AG with glucosuria and ketonuria, elevated BS - IVFs, recheck labs in am; could be related to vomiting and GI losses but with untreated diabetes at risk for DKA Elevated Alkaline phosphatase - recheck LFTs in am - Admit to ICU - SCDs for DVT prophylaxis after TNKase - Peripheral IVs - Telemetry monitoring - IVFs - Recommended establishing care with a primary care provider after discharge - Encouraged resumption of management of hypertension and diabetes to decrease risk of stroke recurrence - Lifestyle modifications for stroke prevention reviewed briefly and stroke education provided - Full Code 04/04/2025 We will check post 24-hour TNKase CT scan. If no evidence of bleed we will start aspirin and Plavix Will start Lipitor once able to swallow Discussed with patient regarding possibility of PEG tube placement if she is unable to swallow going forward. Patient agreeable and okay with it. Discussed with neurology over the phone. We will give patient another 24 hours hopefully swallowing function improves. Awaiting speech therapy evaluation today Awaiting PT OT Continue normal saline however increased rate to 125 cc/h. Hemoglobin A1c 11.0. Continue sliding scale insulin every 6 hours. Lipid profile completed. Triglycerides 224, cholesterol 261, LDL 168. Patient has been slightly tachycardic this morning. Will give normal saline 1 L bolus. Check echo PT OT Blood glucose in a.m. 306. Will start on Lantus 8 units at bedtime as per 0.1 units/kg. Check MRI brain Will start on amlodipine 5 mg daily. PDMP PDMP Reviewed: Not Reviewed Attestations Medical Necessity Statement*: Requires further workup post TNKase care and for stroke. Diagnoses Cerebrovascular accident (CVA) due to thrombosis of right posterior cerebral artery I63.331 CVA mechanism: thrombosis Precerebral and cerebral artery: posterior cerebral artery Laterality of affected vessel: right Other secondary hypertension I15.8 Hypertension type: other secondary hypertension Type 2 diabetes mellitus with hyperglycemia, without long-term current use of insulin E11.65 Diabetes mellitus complication status: with hyperglycemia Diabetes mellitus [facility] insulin use: without assistant terminal manager use Grade I hemorrhoids K64.0 Hemorrhoid type: first degree
[2025-04-04] MEDS: amlodipine 5 mg Tablet PO (16:41)
[2025-04-04] MEDS: sodium chloride 0.9% 1,000 ML 999 ML IV (16:41)
[2025-04-04] MEDS: sodium chloride 0.9% 1,000 ML 125 ML IV (16:41)
[2025-04-04 16:56] LABS: Glucose Point of Care 220 mg/dL (70-110)
--- NOTE | 2025-04-04 17:20 | PC.NURSE ---
Patient was given a sip of water to see if they could swallow the amlodipine pill. They did okay with the water and stated that they would like to try the pill. Patient started to choke on the pill and this nurse called another nurse in there and suction was applied. Patient choked on the pill for about 45 seconds before clearing the pill. Patient has a strong cough. Dr. Guy was contacted. Patient's SPO2 never got affected and patient was alert and following commands the whole time.
[2025-04-04 22:14] LABS: Glucose Point of Care 204 mg/dL (70-110)
[2025-04-05] VITALS (81 sets, daily range): BP systolic 125–190; BP diastolic 76–113; PULSE 61–175; RESP 10–25; TEMP 36.6–38.3; O2SAT 93–98
[2025-04-05] MEDS: sodium chloride 0.9% 1,000 ML 125 ML IV ×3 (01:32→17:56)
--- NOTE | 2025-04-05 02:28 | ECG_ITS ---
[facility] Test Date: 2025-04-05 Pat Name: Nedra Alvarez Department: Room: [facility] Gender: Female Scrap Picker: : [phone] Requested By: Luz Shelley Order Number: [id number] Annie MD: Cuauhtemoc Peace M.D. Measurements Intervals [place] Rate: 174 P: 0 [place]: 0 QRS: 79 QRSD: 91 T: 60 QT: 267 QTc: 455 Interpretive Statements SUPRAVENTRICULAR TACHYCARDIA INDETERMINATE AXIS PATTERN CONSISTENT WITH PULMONARY DISEASE ST DEPRESSION, CONSIDER SUBENDOCARDIAL INJURY [0.1+ mV ST DEPRESSION] CRITICAL TEST RESULT Compared to ECG 04/04/2025 05:05:03 Indeterminate axis now present ST (T wave) deviation now present Left-axis deviation no longer present Electronically Signed On 04-06-2025 06:08:09 CDT by Cuauhtemoc Peace M.D. [email or web address]
[2025-04-05 03:01] LABS: Glucose Point of Care 194 mg/dL (70-110)
[2025-04-05] MEDS: LORazepam 1 MG/0.5 ML injection 0.25 MG IVP (03:01)
--- NOTE | 2025-04-05 04:12 | PC.NURSE ---
SVT: 0224 in Pt room when rhythm change noted on monitor, heart rate sustaining in 180s. Cardene gtt paused. EKG performed at bedside. Dr. Figueroa at bedside, she gave verbal order for 6 mg adenosine ivp from crash cart. 6 mg adenosine pushed at 0238. Vitals: HR 118, 97% spo2 on room air, BP 147/83. Pt stated she was still feeling anxious. Dr. Figueroa gave verbal orders for 0.25 mg ivp ativan Q4H prn.
[2025-04-05 05:07] LABS: Glucose Point of Care 226 mg/dL (70-110)
[2025-04-05] MEDS: insulin lispro 100 unit/1 mL SUBCUT ×3 (05:13→17:56)
[2025-04-05 06:12] LABS: Basophils % 0.2 %; Eosinophils % 0.2 %; Hematocrit 39.5 % (36-47); Lymphocytes # 1.8 10^3/uL (0.8-4.8); Lymphocytes % 14.1 %; Mean Corpuscular HGB Conc 33.7 g/dL (30-55); Mean Corpuscular Hemoglobin 29.5 pg (27-33); Mean Corpuscular Volume 87.6 fl (85-98); Mean Platelet Volume 12.3 fL (7.4-10.4); Monocytes # 0.7 10^3/uL (0.2-0.9); Monocytes % 5.8 %; Neutrophils # 10.22 10^3/uL (1.8-7.7); Neutrophils % 79.3 %; Nucleated Red Blood Cells % 0 %; Platelet Count 248 10^3/cmm (157-399); Red Blood Count 4.51 10^6/uL (3.85-5.65); Red Cell Distribution Width 13.2 % (12.1-15.1); White Blood Count 12.86 10^3/uL (3.29-11.43)
[2025-04-05 06:32] LABS: Alanine Aminotransferase 10 U/L (0-33); Albumin Level 3.8 g/dL (3.5-5.2); Alkaline Phosphatase 90 U/L (35-105); Anion Gap 18.5 (5-19); Aspartate Amino Transferase 12 U/L (0-32); Blood Urea Nitrogen 10 mg/dL (8-23); Calcium 8.7 mg/dL (8.5-10.5); Carbon Dioxide 20 mmol/L (22-29); Chloride 104 mmol/L (98-107); Creatinine Clr Calc Pharmacy 69.2245; Globulin 3.2 g/dL (1.3-4.6); Glomerular Filtration Rate 83.5 mL/min (90-130); Glucose 222 mg/dL (65-115); Magnesium 1.6 mg/dL (1.7-2.3); Osmolality Calculated 294 mOsm/kg (285-295); Potassium 3.5 mmol/L (3.5-5.1); Sodium 139 mmol/L (136-145); Total Bilirubin 0.9 mg/dL (0.15-1.2)
[2025-04-05 07:28] LABS: Glucose Point of Care 196 mg/dL (70-110)
--- NOTE | 2025-04-05 07:47 | XR_ITS ---
WS: [id number] Portable AP semiupright chest, 04/05/2025 Clinical Data: fever hypoxia Comparison: None. Findings: No nodules, masses or effusions are seen. The heart is normal. The pulmonary vascularity is not increased. No pneumonia or pneumothorax is seen. The aortic arch shows mild tortuosity. There are monitor leads on the chest wall. XR/XR chest 1V portable [id number] Impression: Atherosclerosis.
--- NOTE | 2025-04-05 07:48 | MR_ITS ---
WS: [id number] MRI BRAIN WITHOUT CONTRAST HISTORY: stroke COMPARISON: CT head 04/04/2025 TECHNIQUE: Diffusion imaging, multiplanar T1, T2 and FLAIR imaging obtained. Acute diffusion abnormality in the dorsal lateral RIGHT medulla. No additional diffusion abnormalities. Moderate supratentorial scattered T2 and FLAIR signal hyperintensities in the periventricular white matter. No prior large territory infarct. Mild cerebral and cerebellar atrophy. Ventricles and extra-axial spaces are normal. No inferior displacement of cerebellar tonsils. The sella turcica and pituitary gland are unremarkable. Dural venous sinuses and [place] of [place] demonstrate no abnormality on this unenhanced studies. Paranasal sinuses: Clear. Mastoid air cells: Normal. Calvarium and scalp: Intact. MR/MR head wo con* [id number] IMPRESSION: 1. Acute dorsal lateral RIGHT medulla infarct. No hemorrhage. 2. No additional acute infarct. 3. Moderate T2 and FLAIR signal hyperintensities throughout the white matter. More than expected for a patient of this age. This can be related to small vess el disease, hypertension, diabetes and smoking.
--- NOTE | 2025-04-05 08:01 | PC.SOCIAL ---
IMM Update pg 2 of IMM Updated and reviewed w/ patient. Copy provided and copy dated, initialed and placed in chart.
[2025-04-05] MEDS: magnesium sulfate premix 2 GM/50 ML PIGGYBACK IV (08:18)
[2025-04-05 09:25] LABS: Glucose Point of Care 172 mg/dL (70-110)
--- NOTE | 2025-04-05 09:26 | PC.NUTR ---
Received consult for PPN. Recommend PPN to begin @ 23mls/hr and increase 20mls Q4-8H until goal rate of 83mls/hr is reached with fat emulsions 20gm/100mls + MV 10mls/day + standard electrolytes, or per MD discretion.
--- NOTE | 2025-04-05 09:34 | PC.NURSE ---
medical billing coordinator rounds at 0815- patient states she is feeling better but had a cardiac event yesterday. She stated that she is getting some sensation back in her left hand and leg. Her facial symmetry has improved and her coordination has improved since I saw her yesterday. Due to cardiac event she has not worked with PT/OT but says she is looking forward to trying to walk. Daughter bedside.
--- NOTE | 2025-04-05 10:38 | P.PN_ITS ---
Subjective 2 Subjective: seen this am Patient had an episode of SVT overnight and was given adenosine per nursing staff. She had a fever overnight around 7 AM for 101 Fahrenheit. Chest x-ray this morning does not show any infiltrates or aspiration. She states that she feels she has a lot of saliva in the back of her throat and is using suctioning. She says she is trying to learn to swallow again. She still complains of dysphagia. Overnight she Using the bathroom to pee and because her heart rate would go up eventually Meza was placed as one of the incidences that was in SVT. Currently Meza is in place. Sensation starting to come back and left upper and left lower extremity. Vitals/I&O/Wt Last Vital Signs Temp 101 F H 04/05/25 07:37 Pulse 78 04/05/25 08:00 Resp 16 04/05/25 08:00 BP 164/88 04/05/25 08:00 Pulse Ox 97 04/05/25 08:00 O2 Del Method Room Air 04/05/25 07:30 04/04/25 04/05/25 04/05/25 22:59 06:59 14:59 Intake Total 1087.5 / 2087.5 1166.250 / 3253.750 1000 / 1000 Output Total 1650 / 1650 1275 / 2925 Balance -562.5 / 437.5 -108.750 / 527.992 2383 / 1000 Weight last 48 hrs Weight 85.5 kg Weight 84.5 kg Weight 85 kg Physical Exam 2 Narrative: General: Alert oriented x3, patient seen laying in bed appearing comfortable at this time. HEENT: Normocephalic, atraumatic, EOMI, breathing breathing room air. Cardio: Regular rate rhythm, normal S1-S2, Respiratory: Clear to auscultation bilaterally no wheezes no rhonchi GI: Abdomen soft, nontender, nondistended, bowel sounds + Extremities: No edema bilateral lower extremities Neuro: Does not report double vision today., lateral rectus palsy right side, nystagmus when patient looks to the right, left-sided numbness starting to improve.. Urinary Catheter Management: Meza: Cath Placed During This Visit: yes Reason for Continuing Indwelling Catheter: Accurate Measurement of Urinary Output in Critically Ill Patients Urinary Catheter Date of Insertion: 04/05/25 Urinary Catheter Time of Insertion: 00:30 Data 04/05/25 05:59 04/05/25 05:59 A&P Assessment and plan (1) CVA (cerebral vascular accident): The patient presented with sudden onset dizziness, vomiting, left-sided numbness and weakness. She also had transient speech difficulty though that could have been from compazine administration. The clinical picture is consistent with an acute ischemic stroke, likely involving the posterior circulation given the dizziness and vomiting. The patient has a history of TIA and multiple vascular risk factors. She has not had primary care access or medication for her hypertension, diabetes for about 6 months. - Admit to ICU for close monitoring - S/P TNK after blood pressure management with nicardipine initiated - Maintain systolic blood pressure in the range of 160?185 mmHg per protocol - Repeat head CT scan tomorrow to assess for bleeding - Obtain echocardiogram to evaluate cardiac source of embolism - Obtain carotid imaging to assess for vascular disease - Check lipid panel and A1c - Initiate antiplatelet therapy with clopidogrel; has ibuprofen allergy - Monitor for signs of bleeding, including hemorrhoidal and mucosal bleeding - Serial neuro examinations - PT/OT/ST evaluations - Symptomatic management of nausea and dizziness as needed - Reviewed plans of care and provided education to patient and daughter in the room (2) Hypertension: The patient has a history of primary hypertension, previously managed with losartan, but has not been taking antihypertensive medications since October. Upon presentation with hypertensive urgency/emergency in the context of acute stroke, and required nicardipine drip ultimately after initial labetalol to allow for TNKase administration. Typically allow permissive hypertension to optimize cerebral perfusion. Uncontrolled hypertension is a significant risk factor for stroke. - Current goal to maintain a systolic range of 160?185 mmHg during the acute period post-thrombolysis - Monitor blood pressure closely and titrate nicardipine as needed to maintain target range - Pending results of swallow evaluation will consider initiation of oral losartan which she had previously taken to manage her blood pressure (3) Diabetes mellitus, type II: The patient has a history of diabetes mellitus, previously advised to take metformin but was not adherent due to concerns about side effects. The patient has not been on any diabetes medication since October and has been attempting dietary management. Diabetes, uncontrolled, is a significant risk factor for stroke recurrence and will require ongoing management. - Monitor blood glucose during hospitalization - Sliding scale low dose insulin for now - Check A1c - Reassess outpatient diabetes management options after acute stroke period - Recommend follow-up with primary care for long-term diabetes management (4) Hemorrhoids: Mrs Alvarez reports recent minor rectal bleeding when wiping recently, attributed to hemorrhoids. There is a remote history of a bleeding ulcer in her 40s. She also reports bleeding from gums when brushing teeth lately. - Monitor for increased rectal bleeding and gum bleeding - Advise gentle oral hygiene to minimize gum trauma - Nursing staff to observe for signs of bleeding and notify provider if bleeding increases (5) Dysphagia: (6) Tachycardia: (7) Posterior circulation stroke: (8) On parenteral nutrition: (9) Hypomagnesemia: (10) Fever: Plan Borderline AG with glucosuria and ketonuria, elevated BS - IVFs, recheck labs in am; could be related to vomiting and GI losses but with untreated diabetes at risk for DKA Elevated Alkaline phosphatase - recheck LFTs in am - Admit to ICU - SCDs for DVT prophylaxis after TNKase - Peripheral IVs - Telemetry monitoring - IVFs - Recommended establishing care with a primary care provider after discharge - Encouraged resumption of management of hypertension and diabetes to decrease risk of stroke recurrence - Lifestyle modifications for stroke prevention reviewed briefly and stroke education provided - Full Code 04/04/2025 We will check post 24-hour TNKase CT scan. If no evidence of bleed we will start aspirin and Plavix Will start Lipitor once able to swallow Discussed with patient regarding possibility of PEG tube placement if she is unable to swallow going forward. Patient agreeable and okay with it. Discussed with neurology over the phone. We will give patient another 24 hours hopefully swallowing function improves. Awaiting speech therapy evaluation today Awaiting PT OT Continue normal saline however increased rate to 125 cc/h. Hemoglobin A1c 11.0. Continue sliding scale insulin every 6 hours. Lipid profile completed. Triglycerides 224, cholesterol 261, LDL 168. Patient has been slightly tachycardic this morning. Will give normal saline 1 L bolus. Check echo PT OT Blood glucose in a.m. 306. Will start on Lantus 8 units at bedtime as per 0.1 units/kg. Check MRI brain Will start on amlodipine 5 mg daily. 04/05/2025 Patient going for brain MRI this morning. Dysphagia still present. Reports lots of phlegm at back of throat. Speech therapy evaluation done yesterday patient kept NPO. They will reassess today. Looking forward to working with PT today. She became tachycardic yesterday upon trying to get out of bed. At this point she is sitting up in bed and heart rate is okay. Overnight given adenosine for SVT episode per nursing staff Will start PPN temporarily. Once PPN starts we will place on Lantus 8 units at bedtime with moderate dose intensity sliding scale Order magnesium 4 mg IV x 1 for mag 1.6 this morning. White count 12,000 this morning. Chest x-ray does not show any new infiltrates. I do believe that she may have aspirated and hence the fever of 101. Possibly pneumonitis. Will continue to monitor without antibiotics at this time. If fever recurs we will plan to add antibiotics. Will order rectal aspirin 81 daily Discussed with neurology over the phone yesterday. Unable to administer atorvastatin or Plavix at this time. Discussed with her regarding an NG tube for medication administration. Patient reluctant to go that route at this time. Discussed with her that there are essential medications that she needs. I do see an order for lorazepam IV push every 4 hours as needed with 1 dose given last night. I do not see an order for adenosine. Will discuss with nursing staff to see if adenosine was ever given. Going forward may use metoprolol 2.5 mg every 4 hours as needed for tachycardia. Continue IV fluids 125 cc/h. Patient may transfer to cardiac stepdown unit today. PDMP PDMP Reviewed: Not Reviewed Attestations 2 Medical Necessity Statement*: Requires further workup post TNKase care and for stroke. Dysphagia present starting PPN Diagnoses Cerebrovascular accident (CVA) due to thrombosis of right posterior cerebral artery I63.331 CVA mechanism: thrombosis Precerebral and cerebral artery: posterior cerebral artery Laterality of affected vessel: right Other secondary hypertension I15.8 Hypertension type: other secondary hypertension Type 2 diabetes mellitus with hyperglycemia, without long-term current use of insulin E11.65 Diabetes mellitus complication status: with hyperglycemia Diabetes mellitus [facility] insulin use: without [facility] use Grade I hemorrhoids K64.0 Hemorrhoid type: first degree Dysphagia R13.10 Tachycardia R00.0 Posterior circulation stroke I63.50 On parenteral nutrition Z78.9 Hypomagnesemia E83.42 Fever R50.9
[2025-04-05 11:18] LABS: Bilirubin Urine Negative (Negative); Blood Urine 2+ (Negative); Glucose Urine UA 1+ (Normal); Ketones Urine 1+ (Negative); Leukocyte Esterase Urine Negative (Negative); Nitrate Urine Negative (Negative); Protein Urine Trace (Negative); Urine Appearance Clear (CLEAR); Urine Color Yellow (Yellow); Urobilinogen Urine 0.2 mg/dL (Negative)
[2025-04-05 11:24] LABS: Add Urine Microscopic? YES; Bacteria Urine None Seen /hpf; Hyaline Casts Urine 2.87 /lpf; Squamous Epithelial Cell Urine 0-5 /hpf (0-5); WBC Urine 0-5 /hpf (0-5)
[2025-04-05] MEDS: multivitamin inj 10 ML in AA-Dex 4.25%-5% w/Lytes 1,000 ML 23 ML IV (17:57)
[2025-04-05] MEDS: atorvastatin 40 mg Tablet 80 MG PO (21:06)
[2025-04-05 21:31] LABS: Glucose Point of Care 125 mg/dL (70-110)
[2025-04-06] VITALS (98 sets, daily range): BP systolic 141–217; BP diastolic 72–134; PULSE 52–116; RESP 6–27; TEMP 36.6–36.8; O2SAT 94–99
[2025-04-06] MEDS: sodium chloride 0.9% 1,000 ML 125 ML IV ×2 (02:13→09:07)
[2025-04-06 02:17] LABS: Glucose Point of Care 172 mg/dL (70-110)
[2025-04-06 04:17] LABS: Glucose Point of Care 201 mg/dL (70-110)
[2025-04-06] MEDS: insulin lispro 100 unit/1 mL SUBCUT ×4 (04:19→21:49)
[2025-04-06] MEDS: losartan 50 mg Tablet 25 MG PO (08:57)
[2025-04-06] MEDS: aspirin 300 mg Supp PR (08:57)
[2025-04-06] MEDS: clopidogrel 75 mg Tablet PO (08:57)
[2025-04-06 09:01] LABS: Glucose Point of Care 211 mg/dL (70-110)
[2025-04-06] MEDS: multivitamin inj 10 ML in AA-Dex 4.25%-5% w/Lytes 1,000 ML 63 ML IV (09:08)
--- NOTE | 2025-04-06 10:43 | FL_ITS ---
WS: [id number] Modified barium swallow, 04/06/2025 Clinical Data: Other dysphagia Comparison: None. Fluoroscopy time: 2min [id number] # of spot films: Findings: The patient had good oral preparation and there was a good oral bolus. There is minimal residue. It cleared with swallowing. The hypopharynx showed normal function. There is no aspiration or penetration. The barium tablet moved from the oropharynx to the hypopharynx and the esophagus and then into the stomach. FL/FL barium swallow modifd [id number] Impression: 1. Good oral preparation with minimal residue. 2. Good hypopharyngeal function. 3. No aspiration or penetration.
--- NOTE | 2025-04-06 10:46 | PC.NURSE ---
nursing unit coordinator rounds at 0930- patient questions answered and discussed, pt is looking for a rehab facility in [place] and has it down to two options, patient has decreased sensation on left side, but states it is improving, her left hand coordination also continues to improve. Patiet had questions about feeding tube/NG/PEG tube and we discussed those options in great detail. Patient is positive and optimistic about getting swallow function back and states she is working hard with SPL, there is a list of swallow exercises on her bedside table. Patient now has a tom, patient states the bedpan and frequency was wearing her out and caused cardiac changes.
[2025-04-06] MEDS: amlodipine 5 mg Tablet PO (11:36)
--- NOTE | 2025-04-06 15:09 | PM.PN ---
Subjective Subjective: seen this am she states she was able to eat medicine this morning with some water she is practicing swallowing she has been referred to inpatient rehab talked to her about removing her tom Vitals/I&O/Wt Last Vital Signs Temp 98.2 F 04/06/25 09:17 Pulse 57 L 04/06/25 13:00 Resp 14 04/06/25 13:00 BP 177/82 04/06/25 13:00 Pulse Ox 97 04/06/25 13:00 O2 Del Method Room Air 04/06/25 13:00 04/06/25 04/06/25 04/06/25 06:59 14:59 22:59 Intake Total 1317.367 / 3317.367 1505.183 / 1505.183 Output Total 700 / 1450 400 / 400 Balance 617.367 / 9269.107 2300.183 / 1105.183 Weight last 48 hrs Weight 86.5 kg Weight 85.5 kg Physical Exam Narrative: General: Alert oriented x3, patient seen laying in bed appearing comfortable at this time. HEENT: Normocephalic, atraumatic, EOMI, breathing breathing room air. Cardio: Regular rate rhythm, normal S1-S2, Respiratory: Clear to auscultation bilaterally no wheezes no rhonchi GI: Abdomen soft, nontender, nondistended, bowel sounds + Extremities: No edema bilateral lower extremities Neuro: Does not report double vision today., lateral rectus palsy right side, nystagmus when patient looks to the right, left-sided numbness starting to improve.. Urinary Catheter Management: Tom: Cath Placed During This Visit: yes Reason for Continuing Indwelling Catheter: Accurate Measurement of Urinary Output in Critically Ill Patients Urinary Catheter Date of Insertion: 04/05/25 Urinary Catheter Time of Insertion: 00:30 Data 04/05/25 05:59 04/05/25 05:59 A&P Assessment and plan (1) CVA (cerebral vascular accident): The patient presented with sudden onset dizziness, vomiting, left-sided numbness and weakness. She also had transient speech difficulty though that could have been from compazine administration. The clinical picture is consistent with an acute ischemic stroke, likely involving the posterior circulation given the dizziness and vomiting. The patient has a history of TIA and multiple vascular risk factors. She has not had primary care access or medication for her hypertension, diabetes for about 6 months. - Admit to ICU for close monitoring - S/P TNK after blood pressure management with nicardipine initiated - Maintain systolic blood pressure in the range of 160?185 mmHg per protocol - Repeat head CT scan tomorrow to assess for bleeding - Obtain echocardiogram to evaluate cardiac source of embolism - Obtain carotid imaging to assess for vascular disease - Check lipid panel and A1c - Initiate antiplatelet therapy with clopidogrel; has ibuprofen allergy - Monitor for signs of bleeding, including hemorrhoidal and mucosal bleeding - Serial neuro examinations - PT/OT/ST evaluations - Symptomatic management of nausea and dizziness as needed - Reviewed plans of care and provided education to patient and daughter in the room (2) Hypertension: The patient has a history of primary hypertension, previously managed with losartan, but has not been taking antihypertensive medications since October. Upon presentation with hypertensive urgency/emergency in the context of acute stroke, and required nicardipine drip ultimately after initial labetalol to allow for TNKase administration. Typically allow permissive hypertension to optimize cerebral perfusion. Uncontrolled hypertension is a significant risk factor for stroke. - Current goal to maintain a systolic range of 160?185 mmHg during the acute period post-thrombolysis - Monitor blood pressure closely and titrate nicardipine as needed to maintain target range - Pending results of swallow evaluation will consider initiation of oral losartan which she had previously taken to manage her blood pressure (3) Diabetes mellitus, type II: The patient has a history of diabetes mellitus, previously advised to take metformin but was not adherent due to concerns about side effects. The patient has not been on any diabetes medication since October and has been attempting dietary management. Diabetes, uncontrolled, is a significant risk factor for stroke recurrence and will require ongoing management. - Monitor blood glucose during hospitalization - Sliding scale low dose insulin for now - Check A1c - Reassess outpatient diabetes management options after acute stroke period - Recommend follow-up with primary care for long-term diabetes management (4) Hemorrhoids: Mrs Alvarez reports recent minor rectal bleeding when wiping recently, attributed to hemorrhoids. There is a remote history of a bleeding ulcer in her 40s. She also reports bleeding from gums when brushing teeth lately. - Monitor for increased rectal bleeding and gum bleeding - Advise gentle oral hygiene to minimize gum trauma - Nursing staff to observe for signs of bleeding and notify provider if bleeding increases (5) Dysphagia: (6) Tachycardia: (7) Posterior circulation stroke: (8) On parenteral nutrition: (9) Hypomagnesemia: (10) Fever: Plan Borderline AG with glucosuria and ketonuria, elevated BS - IVFs, recheck labs in am; could be related to vomiting and GI losses but with untreated diabetes at risk for DKA Elevated Alkaline phosphatase - recheck LFTs in am - Admit to ICU - SCDs for DVT prophylaxis after TNKase - Peripheral IVs - Telemetry monitoring - IVFs - Recommended establishing care with a primary care provider after discharge - Encouraged resumption of management of hypertension and diabetes to decrease risk of stroke recurrence - Lifestyle modifications for stroke prevention reviewed briefly and stroke education provided - Full Code 04/04/2025 We will check post 24-hour TNKase CT scan. If no evidence of bleed we will start aspirin and Plavix Will start Lipitor once able to swallow Discussed with patient regarding possibility of PEG tube placement if she is unable to swallow going forward. Patient agreeable and okay with it. Discussed with neurology over the phone. We will give patient another 24 hours hopefully swallowing function improves. Awaiting speech therapy evaluation today Awaiting PT OT Continue normal saline however increased rate to 125 cc/h. Hemoglobin A1c 11.0. Continue sliding scale insulin every 6 hours. Lipid profile completed. Triglycerides 224, cholesterol 261, LDL 168. Patient has been slightly tachycardic this morning. Will give normal saline 1 L bolus. Check echo PT OT Blood glucose in a.m. 306. Will start on Lantus 8 units at bedtime as per 0.1 units/kg. Check MRI brain Will start on amlodipine 5 mg daily. 04/05/2025 Patient going for brain MRI this morning. Dysphagia still present. Reports lots of phlegm at back of throat. Speech therapy evaluation done yesterday patient kept NPO. They will reassess today. Looking forward to working with PT today. She became tachycardic yesterday upon trying to get out of bed. At this point she is sitting up in bed and heart rate is okay. Overnight given adenosine for SVT episode per nursing staff Will start PPN temporarily. Once PPN starts we will place on Lantus 8 units at bedtime with moderate dose intensity sliding scale Order magnesium 4 mg IV x 1 for mag 1.6 this morning. White count 12,000 this morning. Chest x-ray does not show any new infiltrates. I do believe that she may have aspirated and hence the fever of 101. Possibly pneumonitis. Will continue to monitor without antibiotics at this time. If fever recurs we will plan to add antibiotics. Will order rectal aspirin 81 daily Discussed with neurology over the phone yesterday. Unable to administer atorvastatin or Plavix at this time. Discussed with her regarding an NG tube for medication administration. Patient reluctant to go that route at this time. Discussed with her that there are essential medications that she needs. I do see an order for lorazepam IV push every 4 hours as needed with 1 dose given last night. I do not see an order for adenosine. Will discuss with nursing staff to see if adenosine was ever given. Going forward may use metoprolol 2.5 mg every 4 hours as needed for tachycardia. Continue IV fluids 125 cc/h. Patient may transfer to cardiac stepdown unit today. 04/06/2025 Started 5 mg amlodipine daily today. Continue aspirin Plavix atorvastatin. Will switch rectal aspirin to oral aspirin as she can swallow pills at this point. Patient's heart rate has improved and is now 57. Patient no longer tachycardic. Remove Tom catheter today. She has been referred to inpatient rehab. Modified barium swallow done this morning. Awaiting results. PDMP PDMP Reviewed: Not Reviewed Attestations Medical Necessity Statement*: Requires further workup post TNKase care and for stroke. Dysphagia present but improving continue PPN Diagnoses Cerebrovascular accident (CVA) due to thrombosis of right posterior cerebral artery I63.331 CVA mechanism: thrombosis Precerebral and cerebral artery: posterior cerebral artery Laterality of affected vessel: right Other secondary hypertension I15.8 Hypertension type: other secondary hypertension Type 2 diabetes mellitus with hyperglycemia, without long-term current use of insulin E11.65 Diabetes mellitus complication status: with hyperglycemia Diabetes mellitus terminal gauger supervisor insulin use: without terminal gauger supervisor use Grade I hemorrhoids K64.0 Hemorrhoid type: first degree Dysphagia R13.10 Tachycardia R00.0 Posterior circulation stroke I63.50 On parenteral nutrition Z78.9 Hypomagnesemia E83.42 Fever R50.9
[2025-04-06 15:44] LABS: Glucose Point of Care 240 mg/dL (70-110)
[2025-04-06] MEDS: hyDRALAzine 20 mg/mL INJ 1 mL 10 MG IVP (17:09)
--- NOTE | 2025-04-06 18:56 | CTR_ITS ---
PROCEDURE INFORMATION: Exam: CT Head Without Contrast Exam date and time: 04/06/2025 7:16 PM Age: 69 years old Clinical indication: Stroke-like symptoms; Left lower extremity numbness/paresthesia; Additional info: New numbness TECHNIQUE: Imaging protocol: Computed tomography of the head without contrast. Radiation optimization: All CT scans at this facility use at least one of these dose optimization techniques: automated exposure control; mA and/or kV adjustment per patient size (includes targeted exams where dose is matched to clinical indication); or iterative reconstruction. Other technique: STROKE PROTOCOL was implemented. COMPARISON: 1. MR head wo con* [id number] 04/05/2025 10:[address] head wo con* [id number] 04/04/2025 12:54 PM RADIATION DOSE METRICS: Total DLP (mGy-cm): 1097.98 FINDINGS: Brain: There is mild cortical atrophy. Low-density changes in the white matter are consistent with nonspecific small vessel chronic ischemic change. There is no intracranial mass, hemorrhage or edema. The infarct in the medulla seen on the MRI examination not definitely seen on the CT scan due to artifact created by the skull base. Cerebral ventricles: No ventriculomegaly. Paranasal sinuses: Visualized sinuses are unremarkable. No fluid levels. Mastoid air cells: Visualized mastoid air cells are well aerated. Bones: Unremarkable. No acute fracture. Soft tissues: Unremarkable. CT/CT head thrombolytic [id number] IMPRESSION: No acute intracranial finding. ASSESSMENT: ASPECTS ([place] Stroke Program Early CT Score) is 10.
--- NOTE | 2025-04-06 18:58 | W.PM.EVENTAC ---
Event Note Event Note: She reported new numbness in the chest , upper abdomen and back on the left from the mid-clavicular to mid scalpular line. She reported it started around 18:00 but did not mention it until 18:30. She had family in her room and was told that her beloved dog was at the vet and having grand-mal seizures. She was hypertensive to 202/100 mmHg at 1700. She was given IV hydralazine. She is s/p acute CVA on Thursday and received lytics for that. She was having numbness in the right face, neck, and upper extremity previously. Dr Chiu called and recommended CT head without contrast if she had new focal deficits. I believe that her new area of numbness is significant to warant repeat imaging. Event Notes Attestations Time Spent in Patient Care: Total time spent on patient care was 25 mins.
--- NOTE | 2025-04-06 19:04 | PC.NURSE ---
Patient had blood pressures into the 200's systolic around 1700. See MAR for hydrazine. Patient reports that at approximately 1800 she felt more numbness on left side, this was reported to nursing staff at approximately 1830. Dr Guy notified as well as shift supervisor melting CT head ordered by Dr. Luque shift supervisor [facility].
[2025-04-06] MEDS: multivitamin inj 10 ML in AA-Dex 4.25%-5% w/Lytes 1,000 ML 83 ML IV (20:29)
[2025-04-06 21:47] LABS: Glucose Point of Care 205 mg/dL (70-110)
[2025-04-06] MEDS: atorvastatin 40 mg Tablet 80 MG PO (21:49)
[2025-04-07] VITALS (85 sets, daily range): BP systolic 95–187; BP diastolic 55–106; PULSE 55–103; RESP 10–26; TEMP 36.5–37.1; O2SAT 93–100
[2025-04-07 03:23] LABS: Glucose Point of Care 220 mg/dL (70-110)
[2025-04-07] MEDS: insulin lispro 100 unit/1 mL SUBCUT ×3 (03:25→17:12)
[2025-04-07 03:40] LABS: Basophils % 0.2 %; Eosinophils # 0.2 10^3/uL (0.0-0.8); Eosinophils % 2.6 %; Hematocrit 37.8 % (36-47); Lymphocytes % 22.9 %; Mean Corpuscular HGB Conc 33.1 g/dL (30-55); Mean Corpuscular Hemoglobin 28.9 pg (27-33); Mean Corpuscular Volume 87.5 fl (85-98); Mean Platelet Volume 12.2 fL (7.4-10.4); Monocytes # 0.6 10^3/uL (0.2-0.9); Monocytes % 6.2 %; Neutrophils # 6.02 10^3/uL (1.8-7.7); Neutrophils % 67.8 %; Nucleated Red Blood Cells % 0 %; Platelet Count 228 10^3/cmm (157-399); Red Blood Count 4.32 10^6/uL (3.85-5.65); Red Cell Distribution Width 12.8 % (12.1-15.1); White Blood Count 8.88 10^3/uL (3.29-11.43)
[2025-04-07 04:02] LABS: Anion Gap 16.3 (5-19); Blood Urea Nitrogen 15 mg/dL (8-23); Calcium 8.9 mg/dL (8.5-10.5); Carbon Dioxide 21 mmol/L (22-29); Chloride 108 mmol/L (98-107); Creatinine Clr Calc Pharmacy 69.6554; Glomerular Filtration Rate 99.7 mL/min (90-130); Glucose 215 mg/dL (65-115); Magnesium 1.9 mg/dL (1.7-2.3); Osmolality Calculated 301 mOsm/kg (285-295); Potassium 3.3 mmol/L (3.5-5.1); Sodium 142 mmol/L (136-145)
[2025-04-07] MEDS: potassium chloride oral liq 20 mEq/15 mL UDC 40 MEQ PO (06:07)
[2025-04-07] MEDS: aspirin 325 mg Tablet PO (08:15)
[2025-04-07] MEDS: clopidogrel 75 mg Tablet PO (08:16)
[2025-04-07] MEDS: losartan 50 mg Tablet 25 MG PO (08:16)
[2025-04-07] MEDS: amlodipine 5 mg Tablet PO ×2 (08:16→11:05)
[2025-04-07] MEDS: carvedilol 12.5 mg Tablet PO (09:41)
[2025-04-07] MEDS: multivitamin inj 10 ML in AA-Dex 4.25%-5% w/Lytes 1,000 ML 83 ML IV (09:42)
[2025-04-07 10:03] LABS: Glucose Point of Care 289 mg/dL (70-110)
--- NOTE | 2025-04-07 12:33 | PC.NURSE ---
Rapid Response: at 1115, patient reported feeling strange, and then heart rate dropped to the 30's.Monitor was alarming asystole, but pulse was palpable, blood pressure not measurable. Patient is unresponsive. Crash cart brought to room, a nurse placed pads on patient while hand sign writer obtained atropine and was preparing to administer, Nurse tech sent to call a rapid response. Rather suddenly, before atropine was administered, the patient's heart rate increased to the mid 50's. Blood pressure improved to 95/50. Patient regained consciousness. Patient Reports that they believe this happened due to the sight of blood and a recent blood draw. Nurse alerted Dr Guy. Coreg discontinued.
--- NOTE | 2025-04-07 13:05 | PM.PN ---
Subjective Subjective: Patient has been very hypertensive. Coreg was added this morning amlodipine was increased to 10 mg. Subsequently when patient was getting blood drawn she became very anxious and heart rate dropped to 30 and she became hypotensive. Nursing staff were going to give her atropine however heart rate and blood pressure improved. Nursing staff reported that it almost appear like asystole however she immediately recovered. She is able to swallow GI soft at this point. Who visiting with select facility personnel today to be evaluated for inpatient rehab. Vitals/I&O/Wt Last Vital Signs Temp 98.4 F 04/07/25 09:00 Pulse 75 04/07/25 09:15 Resp 14 04/07/25 09:15 BP 165/95 04/07/25 09:15 Pulse Ox 99 04/07/25 09:15 O2 Del Method Room Air 04/07/25 08:30 04/06/25 04/07/25 04/07/25 22:59 06:59 14:59 Intake Total 715.05 / 2220.233 1122.05 / 1122.05 Output Total 750 / 1150 850 / 2000 Balance -34.95 / 1070.233 -850 / 519.283 1377.05 / 1122.05 Weight last 48 hrs Weight 88.8 kg Weight 86.5 kg Physical Exam Narrative: General: Alert oriented x3, patient seen sitting up in chair today. HEENT: Normocephalic, atraumatic, EOMI, breathing breathing room air. Cardio: Regular rate rhythm, normal S1-S2, Respiratory: Clear to auscultation bilaterally no wheezes no rhonchi GI: Abdomen soft, nontender, nondistended, bowel sounds + Extremities: No edema bilateral lower extremities Neuro: Does not report double vision today., lateral rectus palsy right side, nystagmus when patient looks to the right, left-sided numbness starting to improve.. She is feeling better. Swelling has improved. Urinary Catheter Management: Meza: Cath Placed During This Visit: yes Reason for Continuing Indwelling Catheter: Accurate Measurement of Urinary Output in Critically Ill Patients Urinary Catheter Date of Insertion: 04/05/25 Urinary Catheter Time of Insertion: 00:30 Data 04/07/25 03:21 04/07/25 03:21 A&P Assessment and plan (1) CVA (cerebral vascular accident): The patient presented with sudden onset dizziness, vomiting, left-sided numbness and weakness. She also had transient speech difficulty though that could have been from compazine administration. The clinical picture is consistent with an acute ischemic stroke, likely involving the posterior circulation given the dizziness and vomiting. The patient has a history of TIA and multiple vascular risk factors. She has not had primary care access or medication for her hypertension, diabetes for about 6 months. - Admit to ICU for close monitoring - S/P TNK after blood pressure management with nicardipine initiated - Maintain systolic blood pressure in the range of 160?185 mmHg per protocol - Repeat head CT scan tomorrow to assess for bleeding - Obtain echocardiogram to evaluate cardiac source of embolism - Obtain carotid imaging to assess for vascular disease - Check lipid panel and A1c - Initiate antiplatelet therapy with clopidogrel; has ibuprofen allergy - Monitor for signs of bleeding, including hemorrhoidal and mucosal bleeding - Serial neuro examinations - PT/OT/ST evaluations - Symptomatic management of nausea and dizziness as needed - Reviewed plans of care and provided education to patient and daughter in the room (2) Hypertension: The patient has a history of primary hypertension, previously managed with losartan, but has not been taking antihypertensive medications since October. Upon presentation with hypertensive urgency/emergency in the context of acute stroke, and required nicardipine drip ultimately after initial labetalol to allow for TNKase administration. Typically allow permissive hypertension to optimize cerebral perfusion. Uncontrolled hypertension is a significant risk factor for stroke. - Current goal to maintain a systolic range of 160?185 mmHg during the acute period post-thrombolysis - Monitor blood pressure closely and titrate nicardipine as needed to maintain target range - Pending results of swallow evaluation will consider initiation of oral losartan which she had previously taken to manage her blood pressure (3) Diabetes mellitus, type II: The patient has a history of diabetes mellitus, previously advised to take metformin but was not adherent due to concerns about side effects. The patient has not been on any diabetes medication since October and has been attempting dietary management. Diabetes, uncontrolled, is a significant risk factor for stroke recurrence and will require ongoing management. - Monitor blood glucose during hospitalization - Sliding scale low dose insulin for now - Check A1c - Reassess outpatient diabetes management options after acute stroke period - Recommend follow-up with primary care for long-term diabetes management (4) Hemorrhoids: Mrs Alvarez reports recent minor rectal bleeding when wiping recently, attributed to hemorrhoids. There is a remote history of a bleeding ulcer in her 40s. She also reports bleeding from gums when brushing teeth lately. - Monitor for increased rectal bleeding and gum bleeding - Advise gentle oral hygiene to minimize gum trauma - Nursing staff to observe for signs of bleeding and notify provider if bleeding increases (5) Dysphagia: (6) Tachycardia: (7) Posterior circulation stroke: (8) On parenteral nutrition: (9) Hypomagnesemia: (10) Fever: Plan Borderline AG with glucosuria and ketonuria, elevated BS - IVFs, recheck labs in am; could be related to vomiting and GI losses but with untreated diabetes at risk for DKA Elevated Alkaline phosphatase - recheck LFTs in am - Admit to ICU - SCDs for DVT prophylaxis after TNKase - Peripheral IVs - Telemetry monitoring - IVFs - Recommended establishing care with a primary care provider after discharge - Encouraged resumption of management of hypertension and diabetes to decrease risk of stroke recurrence - Lifestyle modifications for stroke prevention reviewed briefly and stroke education provided - Full Code 04/04/2025 We will check post 24-hour TNKase CT scan. If no evidence of bleed we will start aspirin and Plavix Will start Lipitor once able to swallow Discussed with patient regarding possibility of PEG tube placement if she is unable to swallow going forward. Patient agreeable and okay with it. Discussed with neurology over the phone. We will give patient another 24 hours hopefully swallowing function improves. Awaiting speech therapy evaluation today Awaiting PT OT Continue normal saline however increased rate to 125 cc/h. Hemoglobin A1c 11.0. Continue sliding scale insulin every 6 hours. Lipid profile completed. Triglycerides 224, cholesterol 261, LDL 168. Patient has been slightly tachycardic this morning. Will give normal saline 1 L bolus. Check echo PT OT Blood glucose in a.m. 306. Will start on Lantus 8 units at bedtime as per 0.1 units/kg. Check MRI brain Will start on amlodipine 5 mg daily. 04/05/2025 Patient going for brain MRI this morning. Dysphagia still present. Reports lots of phlegm at back of throat. Speech therapy evaluation done yesterday patient kept NPO. They will reassess today. Looking forward to working with PT today. She became tachycardic yesterday upon trying to get out of bed. At this point she is sitting up in bed and heart rate is okay. Overnight given adenosine for SVT episode per nursing staff Will start PPN temporarily. Once PPN starts we will place on Lantus 8 units at bedtime with moderate dose intensity sliding scale Order magnesium 4 mg IV x 1 for mag 1.6 this morning. White count 12,000 this morning. Chest x-ray does not show any new infiltrates. I do believe that she may have aspirated and hence the fever of 101. Possibly pneumonitis. Will continue to monitor without antibiotics at this time. If fever recurs we will plan to add antibiotics. Will order rectal aspirin 81 daily Discussed with neurology over the phone yesterday. Unable to administer atorvastatin or Plavix at this time. Discussed with her regarding an NG tube for medication administration. Patient reluctant to go that route at this time. Discussed with her that there are essential medications that she needs. I do see an order for lorazepam IV push every 4 hours as needed with 1 dose given last night. I do not see an order for adenosine. Will discuss with nursing staff to see if adenosine was ever given. Going forward may use metoprolol 2.5 mg every 4 hours as needed for tachycardia. Continue IV fluids 125 cc/h. Patient may transfer to cardiac stepdown unit today. 04/06/2025 Started 5 mg amlodipine daily today. Continue aspirin Plavix atorvastatin. Will switch rectal aspirin to oral aspirin as she can swallow pills at this point. Patient's heart rate has improved and is now 57. Patient no longer tachycardic. Remove Meza catheter today. She has been referred to inpatient rehab. Modified barium swallow done this morning. Awaiting results. 04/07/2025 Patient was placed amlodipine 10 daily however dose reduced amlodipine 5 mg daily Continue aspirin Plavix atorvastatin Patient's severe bradycardic episode this morning is very concerning. Will discuss with cardiology. Check echocardiogram Continue to monitor. Hold any further Coreg. Patient needs to be monitored in the hospital and cannot be discharged today for this episode this morning. Stop PPN. Continue GI soft diet. check trops PDMP PDMP Reviewed: Not Reviewed Attestations Medical Necessity Statement*: Episode of severe bradycardia hypotension this morning. Checking echocardiogram. Patient needs cardiac workup. Diagnoses Cerebrovascular accident (CVA) due to thrombosis of right posterior cerebral artery I63.331 CVA mechanism: thrombosis Laterality of affected vessel: right Precerebral and cerebral artery: posterior cerebral artery Other secondary hypertension I15.8 Hypertension type: other secondary hypertension Type 2 diabetes mellitus with hyperglycemia, without long-term current use of insulin E11.65 Diabetes mellitus complication status: with hyperglycemia Diabetes mellitus exterminator termite insulin use: without exterminator termite use Grade I hemorrhoids K64.0 Hemorrhoid type: first degree Dysphagia R13.10 Tachycardia R00.0 Posterior circulation stroke I63.50 On parenteral nutrition Z78.9 Hypomagnesemia E83.42 Fever R50.9
--- NOTE | 2025-04-07 13:16 | ECG_ITS ---
[facility] Date: 2025-04-07 Pat Name: Nedra Alvarez Department: Room: [facility] Gender: Female Solutions Operator: : [id number] Requested By: Edyta Guy Order Number: [id number] Annie MD: Nereyda Amezquita M.D. Measurements Intervals [place] Rate: 65 P: 55 IL: 170 QRS: 7 QRSD: 86 T: 92 QT: 413 QTc: 432 Interpretive Statements SINUS RHYTHM NONSPECIFIC T-WAVE ABNORMALITY Compared to ECG 04/05/2025 02:28:34 T-wave abnormality now present Supraventricular tachycardia no longer present Indeterminate axis no longer present ST (T wave) deviation no longer present Electronically Signed On 04-09-2025 19:29:52 CDT by Nereyda Amezquita M.D. [email or web address]
--- NOTE | 2025-04-07 13:17 | USCV_ITS ---
Nedra Alvarez Age: 69 Gender: F : 1955 Exam Date: 04/07/2025 17:25 Ordering Phys: Edyta Guy MD Technologist: Michael Orozco Exam Location: [facility] – [place] Indication: severe bradycardia BP: 139 / 82 HR: Rhythm: Sinus Technical Quality: Adequate MEASUREMENTS (Male / Female) Normal Values 2D ECHO LV Diastolic Diameter PLAX 4.3 cm 4.2 - 5.9 / 3.9 - 5.3 cm IVS Diastolic Thickness 1.4 cm 0.6 - 1.0 / 0.6 - 0.9 cm IVS Systolic Thickness 1.7 cm LVPW Diastolic Thickness 1.3 cm 0.6 - 1.0 / 0.6 - 0.9 cm LVPW Systolic Thickness 1.8 cm LVOT Diameter 2.0 cm LV Ejection Fraction 2D Teich 70.4 % LV Ejection Fraction MOD 4C 71.1 % LV Ejection Fraction MOD 2C 66.8 % LV Ejection Fraction 2C AL 69.1 % LA Diameter 3.0 cm RA Systolic Volume 4C AL 27.5 ml RA Systolic Volume 4C MOD 26.5 ml LA Sys Volume AL 36.4 cm cubed LA Sys Volume Index AL 18.1 cm cubed/m squared Aorta at Sinotubular Diameter 2.3 cm IVC Diameter 1.4 cm M-MODE LA Ao Ratio MM 1.5 AV Cusp Separation MM 1.7 cm FINDINGS Left Ventricle Mild concentric left ventricle hypertrophy. Normal left ventricle wall motion and thickening. LV systolic functions are normal. Estimated LVEF is normal 65%. Right Ventricle Normal right ventricular size and systolic function. Right Atrium Normal right atrial size. Left Atrium Normal left atrial size. Mitral Valve Aortic Valve Tricuspid Valve Pulmonic Valve Pericardium Aorta Normal size aortic root and proximal ascending aorta. IVC Normal IVC dimension with >50% respiratory change of the inferior vena cava. CONCLUSIONS Limited echo to assess LV systolic function. 1. Mild concentric LVH. 2. Normal LV systolic function. Estimated LVEF is normal 65%. 3. Normal RV size and RV systolic function. Nereyda Amezquita MD (Electronically Signed) Final Date: 07 April 2025 17:58 S
[2025-04-07 14:28] LABS: Troponin(5th) Baseline < 6 ng/L (0-10)
--- NOTE | 2025-04-07 15:16 | ECG_ITS ---
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 Measurements Intervals [place] Rate: 63 P: 58 RI: 164 QRS: -5 QRSD: 92 T: 105 QT: 416 QTc: 426 Interpretive Statements SINUS RHYTHM NONSPECIFIC T-WAVE ABNORMALITY Compared to ECG 04/07/2025 14:15:16 No significant changes Electronically Signed On 04-09-2025 19:39:01 CDT by Nereyda Amezquita M.D. [id number] [id number]
[2025-04-07 16:35] LABS: Troponin 5 2HR < 6.0 ng/L (0-10); Troponin 5 2HR Delta 0 ABS# (0-10)
[2025-04-07 16:56] LABS: Glucose Point of Care 261 mg/dL (70-110)
--- NOTE | 2025-04-07 18:32 | PC.NURSE ---
Shift Summary: rapid response in the mormning, but patient recovered without any interventions (see previous nurses note). Otherwise uneventful. Patient has equal and full strength in all 4 limbs, but numbness to left side continues. Weaning off of PPN.
--- NOTE | 2025-04-07 19:16 | ECG_ITS ---
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 Measurements Intervals [place] Rate: 66 P: 35 NV: 167 QRS: -11 QRSD: 89 T: 33 QT: 405 QTc: 426 Interpretive Statements SINUS RHYTHM INFERIOR MYOCARDIAL INFARCTION , PROBABLY OLD [40+ ms Q WAVE AND/OR ST/T ABNORMALITY IN II/aVF] Compared to ECG 04/07/2025 15:33:13 Myocardial infarct finding now present T-wave abnormality no longer present Electronically Signed On 04-09-2025 19:38:29 CDT by Nereyda Amezquita M.D. [id number] [id number]
[2025-04-07 20:45] LABS: Troponin 5 6HR 6.78 ng/L (0-10); Troponin 5 6HR Delta 0.78001 ng/L (0-12)
[2025-04-07] MEDS: atorvastatin 40 mg Tablet 80 MG PO (21:27)
[2025-04-07] MEDS: insulin glargine 100 units/1 mL 5 UNIT SUBCUT (21:28)
[2025-04-07 21:58] LABS: Glucose Point of Care 135 mg/dL (70-110)
[2025-04-08] VITALS (75 sets, daily range): BP systolic 119–173; BP diastolic 66–143; PULSE 52–107; RESP 9–31; TEMP 36.4–37.4; O2SAT 92–100
[2025-04-08 05:03] LABS: Glucose Point of Care 153 mg/dL (70-110)
[2025-04-08] MEDS: insulin lispro 100 unit/1 mL SUBCUT ×4 (05:03→20:56)
[2025-04-08 05:07] LABS: Basophils % 0.2 %; Eosinophils # 0.3 10^3/uL (0.0-0.8); Eosinophils % 3.8 %; Hematocrit 37.9 % (36-47); Lymphocytes # 2.4 10^3/uL (0.8-4.8); Lymphocytes % 26.4 %; Mean Corpuscular HGB Conc 33.8 g/dL (30-55); Mean Corpuscular Hemoglobin 29.1 pg (27-33); Mean Corpuscular Volume 86.1 fl (85-98); Mean Platelet Volume 12.8 fL (7.4-10.4); Monocytes # 0.5 10^3/uL (0.2-0.9); Neutrophils # 5.74 10^3/uL (1.8-7.7); Neutrophils % 63.3 %; Nucleated Red Blood Cells % 0 %; Platelet Count 250 10^3/cmm (157-399); Red Cell Distribution Width 12.7 % (12.1-15.1); White Blood Count 9.06 10^3/uL (3.29-11.43)
[2025-04-08 05:31] LABS: Anion Gap 15.4 (5-19); Blood Urea Nitrogen 17 mg/dL (8-23); Calcium 9.3 mg/dL (8.5-10.5); Carbon Dioxide 20 mmol/L (22-29); Chloride 107 mmol/L (98-107); Glomerular Filtration Rate 83.5 mL/min (90-130); Glucose 139 mg/dL (65-115); Osmolality Calculated 292 mOsm/kg (285-295); Potassium 3.4 mmol/L (3.5-5.1); Sodium 139 mmol/L (136-145)
[2025-04-08] MEDS: aspirin 325 mg Tablet PO (08:02)
[2025-04-08] MEDS: losartan 50 mg Tablet 25 MG PO (08:03)
[2025-04-08] MEDS: amlodipine 5 mg Tablet PO ×2 (08:04→11:29)
[2025-04-08] MEDS: clopidogrel 75 mg Tablet PO (08:06)
[2025-04-08 08:07] LABS: Glucose Point of Care 205 mg/dL (70-110)
[2025-04-08] MEDS: ALPRAZolam 0.5 mg Tablet 0.25 MG PO ×2 (11:28→17:21)
[2025-04-08 11:35] LABS: Glucose Point of Care 220 mg/dL (70-110)
--- NOTE | 2025-04-08 12:58 | PC.NURSE ---
[facility] Contact: Yasmine - [phone] Yasmine with [facility] called. Nurse provided her with an update. Dr Amezquita would like to keep the patient for at least another day to monitor heart rate due to bradycardic episode on 04/07/2025.
--- NOTE | 2025-04-08 14:05 | P.PN_ITS ---
Subjective 2 Subjective: seen this morning no acute events overnight Vitals/I&O/Wt Last Vital Signs Temp 99.3 F 04/08/25 12:00 Pulse 76 04/08/25 12:00 Resp 19 H 04/08/25 12:00 BP 124/66 04/08/25 12:00 Pulse Ox 98 04/08/25 12:00 O2 Del Method Room Air 04/08/25 12:00 04/07/25 04/08/25 04/08/25 22:59 06:59 14:59 Intake Total 466.217 / 1588.267 72.667 / 1660.934 150 / 150 Output Total 200 / 200 400 / 600 0 / 0 Balance 266.217 / 1388.267 -327.333 / 1060.934 150 / 150 Weight last 48 hrs Weight 86 kg Weight 88.8 kg Physical Exam 2 Narrative: General: Alert oriented x3, patient seen sitting up in chair today. HEENT: Normocephalic, atraumatic, EOMI, breathing breathing room air. Cardio: Regular rate rhythm, normal S1-S2, Respiratory: Clear to auscultation bilaterally no wheezes no rhonchi GI: Abdomen soft, nontender, nondistended, bowel sounds + Extremities: No edema bilateral lower extremities Neuro: left sided numbness present but improving Urinary Catheter Management: Meza: Cath Placed During This Visit: yes Reason for Continuing Indwelling Catheter: Accurate Measurement of Urinary Output in Critically Ill Patients Urinary Catheter Date of Insertion: 04/05/25 Urinary Catheter Time of Insertion: 00:30 Data 04/08/25 04:09 04/08/25 04:09 A&P Assessment and plan (1) CVA (cerebral vascular accident): The patient presented with sudden onset dizziness, vomiting, left-sided numbness and weakness. She also had transient speech difficulty though that could have been from compazine administration. The clinical picture is consistent with an acute ischemic stroke, likely involving the posterior circulation given the dizziness and vomiting. The patient has a history of TIA and multiple vascular risk factors. She has not had primary care access or medication for her hypertension, diabetes for about 6 months. - Admit to ICU for close monitoring - S/P TNK after blood pressure management with nicardipine initiated - Maintain systolic blood pressure in the range of 160?185 mmHg per protocol - Repeat head CT scan tomorrow to assess for bleeding - Obtain echocardiogram to evaluate cardiac source of embolism - Obtain carotid imaging to assess for vascular disease - Check lipid panel and A1c - Initiate antiplatelet therapy with clopidogrel; has ibuprofen allergy - Monitor for signs of bleeding, including hemorrhoidal and mucosal bleeding - Serial neuro examinations - PT/OT/ST evaluations - Symptomatic management of nausea and dizziness as needed - Reviewed plans of care and provided education to patient and daughter in the room (2) Hypertension: The patient has a history of primary hypertension, previously managed with losartan, but has not been taking antihypertensive medications since October. Upon presentation with hypertensive urgency/emergency in the context of acute stroke, and required nicardipine drip ultimately after initial labetalol to allow for TNKase administration. Typically allow permissive hypertension to optimize cerebral perfusion. Uncontrolled hypertension is a significant risk factor for stroke. - Current goal to maintain a systolic range of 160?185 mmHg during the acute period post-thrombolysis - Monitor blood pressure closely and titrate nicardipine as needed to maintain target range - Pending results of swallow evaluation will consider initiation of oral losartan which she had previously taken to manage her blood pressure (3) Diabetes mellitus, type II: The patient has a history of diabetes mellitus, previously advised to take metformin but was not adherent due to concerns about side effects. The patient has not been on any diabetes medication since October and has been attempting dietary management. Diabetes, uncontrolled, is a significant risk factor for stroke recurrence and will require ongoing management. - Monitor blood glucose during hospitalization - Sliding scale low dose insulin for now - Check A1c - Reassess outpatient diabetes management options after acute stroke period - Recommend follow-up with primary care for long-term diabetes management (4) Hemorrhoids: Mrs Alvarez reports recent minor rectal bleeding when wiping recently, attributed to hemorrhoids. There is a remote history of a bleeding ulcer in her 40s. She also reports bleeding from gums when brushing teeth lately. - Monitor for increased rectal bleeding and gum bleeding - Advise gentle oral hygiene to minimize gum trauma - Nursing staff to observe for signs of bleeding and notify provider if bleeding increases (5) Dysphagia: (6) Tachycardia: (7) Posterior circulation stroke: (8) On parenteral nutrition: (9) Hypomagnesemia: (10) Fever: Plan Borderline AG with glucosuria and ketonuria, elevated BS - IVFs, recheck labs in am; could be related to vomiting and GI losses but with untreated diabetes at risk for DKA Elevated Alkaline phosphatase - recheck LFTs in am - Admit to ICU - SCDs for DVT prophylaxis after TNKase - Peripheral IVs - Telemetry monitoring - IVFs - Recommended establishing care with a primary care provider after discharge - Encouraged resumption of management of hypertension and diabetes to decrease risk of stroke recurrence - Lifestyle modifications for stroke prevention reviewed briefly and stroke education provided - Full Code 04/04/2025 We will check post 24-hour TNKase CT scan. If no evidence of bleed we will start aspirin and Plavix Will start Lipitor once able to swallow Discussed with patient regarding possibility of PEG tube placement if she is unable to swallow going forward. Patient agreeable and okay with it. Discussed with neurology over the phone. We will give patient another 24 hours hopefully swallowing function improves. Awaiting speech therapy evaluation today Awaiting PT OT Continue normal saline however increased rate to 125 cc/h. Hemoglobin A1c 11.0. Continue sliding scale insulin every 6 hours. Lipid profile completed. Triglycerides 224, cholesterol 261, LDL 168. Patient has been slightly tachycardic this morning. Will give normal saline 1 L bolus. Check echo PT OT Blood glucose in a.m. 306. Will start on Lantus 8 units at bedtime as per 0.1 units/kg. Check MRI brain Will start on amlodipine 5 mg daily. 04/05/2025 Patient going for brain MRI this morning. Dysphagia still present. Reports lots of phlegm at back of throat. Speech therapy evaluation done yesterday patient kept NPO. They will reassess today. Looking forward to working with PT today. She became tachycardic yesterday upon trying to get out of bed. At this point she is sitting up in bed and heart rate is okay. Overnight given adenosine for SVT episode per nursing staff Will start PPN temporarily. Once PPN starts we will place on Lantus 8 units at bedtime with moderate dose intensity sliding scale Order magnesium 4 mg IV x 1 for mag 1.6 this morning. White count 12,000 this morning. Chest x-ray does not show any new infiltrates. I do believe that she may have aspirated and hence the fever of 101. Possibly pneumonitis. Will continue to monitor without antibiotics at this time. If fever recurs we will plan to add antibiotics. Will order rectal aspirin 81 daily Discussed with neurology over the phone yesterday. Unable to administer atorvastatin or Plavix at this time. Discussed with her regarding an NG tube for medication administration. Patient reluctant to go that route at this time. Discussed with her that there are essential medications that she needs. I do see an order for lorazepam IV push every 4 hours as needed with 1 dose given last night. I do not see an order for adenosine. Will discuss with nursing staff to see if adenosine was ever given. Going forward may use metoprolol 2.5 mg every 4 hours as needed for tachycardia. Continue IV fluids 125 cc/h. Patient may transfer to cardiac stepdown unit today. 04/06/2025 Started 5 mg amlodipine daily today. Continue aspirin Plavix atorvastatin. Will switch rectal aspirin to oral aspirin as she can swallow pills at this point. Patient's heart rate has improved and is now 57. Patient no longer tachycardic. Remove Meza catheter today. She has been referred to inpatient rehab. Modified barium swallow done this morning. Awaiting results. 04/07/2025 Patient was placed amlodipine 10 daily however dose reduced amlodipine 5 mg daily Continue aspirin Plavix atorvastatin Patient's severe bradycardic episode this morning is very concerning. Will discuss with cardiology. Check echocardiogram Continue to monitor. Hold any further Coreg. Patient needs to be monitored in the hospital and cannot be discharged today for this episode this morning. Stop PPN. Continue GI soft diet. check trops 04/08/2025 discussed pt's bradycardic episode with cardiology it may have been induced by coreg we will continue to monitor at this time pt also ahving anxiety will start xanax 0.25 bid tele strips reviewed echo reviewed, no abnormalities noted trops negative PDMP PDMP Reviewed: Not Reviewed Attestations 2 Medical Necessity Statement*: continue to monitor HR and BP overnight it stable by morning, will dc Diagnoses Cerebrovascular accident (CVA) due to thrombosis of right posterior cerebral artery I63.331 CVA mechanism: thrombosis Precerebral and cerebral artery: posterior cerebral artery Laterality of affected vessel: right Other secondary hypertension I15.8 Hypertension type: other secondary hypertension Type 2 diabetes mellitus with hyperglycemia, without long-term current use of insulin E11.65 Diabetes mellitus complication status: with hyperglycemia Diabetes mellitus chcf insulin use: without long term care phlebotomist use Grade I hemorrhoids K64.0 Hemorrhoid type: first degree Dysphagia R13.10 Tachycardia R00.0 Posterior circulation stroke I63.50 On parenteral nutrition Z78.9 Hypomagnesemia E83.42 Fever R50.9
[2025-04-08] MEDS: potassium chloride oral liq 20 mEq/15 mL UDC 40 MEQ PO (14:27)
--- NOTE | 2025-04-08 17:44 | PC.NURSE ---
Shift Summary: Ambulated twice today with physical therapy and then with nursing staff. about 25 feet each time. Continues to have left sided weakness/numbness while walking, but improved compared to yesterday. Drifts to the left while walking. Appetite has been increasing. Poor oral fluid intake, but improving. Started on low dose of xanax. No cardiac events today. POssibly going to [facility]. Yasmine ([facility] representative: [phone])
[2025-04-08 17:45] LABS: Glucose Point of Care 146 mg/dL (70-110)
[2025-04-08 20:50] LABS: Glucose Point of Care 155 mg/dL (70-110)
[2025-04-08] MEDS: atorvastatin 40 mg Tablet 80 MG PO (20:55)
[2025-04-08] MEDS: insulin glargine 100 units/1 mL 5 UNIT SUBCUT (20:55)
[2025-04-09] VITALS (29 sets, daily range): BP systolic 118–176; BP diastolic 69–98; PULSE 49–104; RESP 9–21; TEMP 36.4–36.7; O2SAT 94–100
[2025-04-09 05:34] LABS: Basophils % 0.4 %; Eosinophils # 0.3 10^3/uL (0.0-0.8); Eosinophils % 3.7 %; Hematocrit 38.4 % (36-47); Lymphocytes # 2.2 10^3/uL (0.8-4.8); Lymphocytes % 28.9 %; Mean Corpuscular HGB Conc 32.8 g/dL (30-55); Mean Corpuscular Hemoglobin 29.2 pg (27-33); Mean Corpuscular Volume 89.1 fl (85-98); Mean Platelet Volume 12.6 fL (7.4-10.4); Monocytes # 0.5 10^3/uL (0.2-0.9); Monocytes % 6.8 %; Neutrophils # 4.52 10^3/uL (1.8-7.7); Neutrophils % 59.8 %; Nucleated Red Blood Cells % 0 %; Platelet Count 242 10^3/cmm (157-399); Red Blood Count 4.31 10^6/uL (3.85-5.65); Red Cell Distribution Width 12.9 % (12.1-15.1); White Blood Count 7.55 10^3/uL (3.29-11.43)
[2025-04-09 05:48] LABS: Blood Urea Nitrogen 17 mg/dL (8-23); Calcium 9.2 mg/dL (8.5-10.5); Carbon Dioxide 19 mmol/L (22-29); Chloride 108 mmol/L (98-107); Creatinine Clr Calc Pharmacy 67.7164; Glomerular Filtration Rate 83.5 mL/min (90-130); Glucose 134 mg/dL (65-115); Magnesium 1.9 mg/dL (1.7-2.3); Osmolality Calculated 298 mOsm/kg (285-295); Sodium 142 mmol/L (136-145)
[2025-04-09 05:49] LABS: Anion Gap 18.9 (5-19); Potassium 3.9 mmol/L (3.5-5.1)
--- NOTE | 2025-04-09 09:37 | P.TS_ITS ---
Transfer Summary Providers Date of Admission: 04/03/25 12:53 Date of Discharge/Transfer: 04/09/25 Attending Provider at Admission: Lissette Collazo MD Attending Provider at Transfer: Edyta Guy MD Transfer Plans: Anticipated date of transfer: 04/09/25 . Receiving Facility: [facility] . 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 (2) Hypertension: Status: Acute Qualifiers: Hypertension type: other secondary hypertension Qualified Code(s): I15.8 - Other secondary hypertension (3) Diabetes mellitus, type II: Status: Chronic Qualifiers: Diabetes mellitus complication status: with hyperglycemia Diabetes mellitus termite control servicer insulin use: without termite control servicer use Qualified Code(s): E11.65 - Type 2 diabetes mellitus with hyperglycemia (4) Hemorrhoids: Status: Acute Qualifiers: Hemorrhoid type: first degree Qualified Code(s): K64.0 - First degree hemorrhoids (5) Dysphagia: Status: Acute (6) Tachycardia: Status: Acute (7) Posterior circulation stroke: Status: Acute (8) On parenteral nutrition: Status: Acute (9) Hypomagnesemia: Status: Acute (10) Fever: Status: Acute Reason for Visit Reason for Visit n/v dizziness Hospital Course Hospital Course Patient was admitted with posterior circulation stroke secondary to sudden onset dizziness vomiting left-sided numbness weakness. Also had transient speech difficulty and dysphagia. Patient was given TNKase. Secondary to blood pressure being very high she was maintained on a nicardipine drip with to allow for permissive hypertension. Gradually blood pressure was lowered and now is 140-150. Systolic. I had been curbside discussing with neurology over the phone. Patient had significant dysphagia which did improve over a few days. She was given PPN. He has also had a modified barium swallow and has showed no signs of aspiration. She is on a GI soft diet with thickened liquids as tolerated. On the modified barium swallow speech therapist tried different consistencies and patient did really well. She does take small bites at a time and small sips because she still worries that she might choke. She will advance diet as tolerated. During hospital stay she also had high levels of anxiety when she found out her dog was in the hospital. At 1 point during her blood draw she had vasovagal response with heart rate and blood pressure dropping. Troponins were checked which were negative. Echo was normal. Cardiology reviewed telemetry strips and EKGs. We monitored her in extra 24 hours in the hospital. At this point she has been optimized to be discharged to rehab. She does have diabetes and has been started on Lantus and sliding scale insulin. This is to be further optimized. Hemoglobin A1c is 11. Physical Exam Narrative: General: Alert oriented x3, patient seen laying in bed comfortable. HEENT: Normocephalic, atraumatic, EOMI, breathing breathing room air. Cardio: Regular rate rhythm, normal S1-S2, Respiratory: Clear to auscultation bilaterally no wheezes no rhonchi GI: Abdomen soft, nontender, nondistended, bowel sounds + Extremities: No edema bilateral lower extremities Neuro: left sided numbness present but improving Urinary Catheter Management: Meza: Cath Placed During This Visit: yes Reason for Continuing Indwelling Catheter: Accurate Measurement of Urinary Output in Critically Ill Patients Urinary Catheter Date of Insertion: 04/05/25 Urinary Catheter Time of Insertion: 00:30 TS Data Studies Completed and Pending Completed Studies During Hospitalization Category Date Time Status CT head thrombolytic 51810 Stat Cat Scan 04/03/25 10:[address] head thrombolytic [id number] Stat Cat Scan 04/06/25 18:[address] head wo con* [id number] Routine Cat Scan 04/04/25 09:00 Completed CTA head neck [CT angio headneck* [id number]/[id number]] Stat Cat Scan 04/03/25 12:49 Completed Modified barium swallow [FL barium swallow modifd [id number] Exams 04/06/25 10:43 Completed ] Routine XR chest 1V portable [id number] Stat Exams 04/05/25 07:47 Completed MR head wo con* [id number] Urgent MRI 04/05/25 07:48 Completed CV. echo complete* [id number] Routine Ultrasound 04/03/25 14:13 Completed CV. echo limited 20472 Stat Ultrasound 04/07/25 13:17 Completed Laboratory Last Values WBC 7.55 10^3/uL (3.29-11.43) 04/09/25 04:43 RBC 4.31 10^6/uL (3.85-5.65) 04/09/25 04:43 Hgb 12.60 g/dL (11.27-16.99) 04/09/25 04:43 Hct 38.4 % (36-47) 04/09/25 04:43 MCV 89.1 fl (85-98) 04/09/25 04:43 MCH 29.2 pg (27-33) 04/09/25 04:43 MCHC 32.8 g/dL (30-55) 04/09/25 04:43 RDW 12.9 % (12.1-15.1) 04/09/25 04:43 Plt Count 242 10^3/cmm (157-399) 04/09/25 04:43 MPV 12.6 fL (7.4-10.4) H 04/09/25 04:43 Neut % (Auto) 59.8 % 04/09/25 04:43 Lymph % (Auto) 28.9 % 04/09/25 04:43 [place] % (Auto) 6.8 % 04/09/25 04:43 Eos % (Auto) 3.7 % 04/09/25 04:43 Baso % (Auto) 0.4 % 04/09/25 04:43 Neut # (Auto) 4.52 10^3/uL (1.8-7.7) 04/09/25 04:43 Lymph # (Auto) 2.2 10^3/uL (0.8-4.8) 04/09/25 04:43 [place] # (Auto) 0.5 10^3/uL (0.2-0.9) 04/09/25 04:43 Eos # (Auto) 0.3 10^3/uL (0.0-0.8) 04/09/25 04:43 Baso # (Auto) 0.0 10^3/uL (0.0-0.1) 04/09/25 04:43 Nucleated RBC % (auto) 0 % 04/09/25 04:43 Nucleated RBCs # 0.0 /100WBC 04/09/25 04:43 PT 12.20 SECONDS (12.1-14.9) 04/03/25 10:15 INR 0.85 (0.8-1.2) 04/03/25 10:15 APTT 22.9 SECONDS (23.9-36.7) L 04/03/25 10:15 Sodium 142 mmol/L (136-145) 04/09/25 04:43 Potassium 3.9 mmol/L (3.5-5.1) 04/09/25 04:43 Chloride 108 mmol/L (98-107) H 04/09/25 04:43 Carbon Dioxide 19 mmol/L (22-29) L 04/09/25 04:43 Anion Gap 18.9 (5-19) 04/09/25 04:43 BUN 17 mg/dL (8-23) 04/09/25 04:43 Creatinine 0.7 mg/dL (0.5-0.9) 04/09/25 04:43 GFR Calculation 83.5 mL/min (90-130) L 04/09/25 04:43 Glucose 134 mg/dL (65-115) H 04/09/25 04:43 POC Glucose 155 mg/dL (70-110) H 04/08/25 20:47 Estimat Average Glucose 269 04/04/25 03:40 Hemoglobin A1c 11.0 % (4.0-6.0) H 04/04/25 03:40 Calculated Osmolality 298 mOsm/kg (285-295) H 04/09/25 04:43 Calcium 9.2 mg/dL (8.5-10.5) 04/09/25 04:43 Phosphorus 3.6 mg/dL (2.5-4.5) 04/04/25 03:40 Magnesium 1.9 mg/dL (1.7-2.3) 04/09/25 04:43 Total Bilirubin 0.9 mg/dL (0.15-1.2) 04/05/25 05:59 AST 12 U/L (0-32) 04/05/25 05:59 ALT 10 U/L (0-33) 04/05/25 05:59 Alkaline Phosphatase 90 U/L (35-105) 04/05/25 05:59 Troponin T Baseline < 6 ng/L (0-10) 04/07/25 13:54 Troponin T 120 Minute < 6.0 ng/L (0-10) 04/07/25 15:44 Delta Troponin T 0 ABS# (0-10) 04/07/25 15:44 Troponin T Hi Sens 6Hr 6.78 ng/L (0-10) 04/07/25 20:22 Troponin T Hi Sens 6Hr Delta 0.39469 ng/L (0-12) 04/07/25 20:22 Total Protein 7.0 g/dL (6.6-8.7) 04/05/25 05:59 Albumin 3.8 g/dL (3.5-5.2) 04/05/25 05:59 Globulin 3.2 g/dL (1.3-4.6) 04/05/25 05:59 Triglycerides 224 mg/dL (0-150) H 04/04/25 03:40 Cholesterol 261 mg/dL (0-200) H 04/04/25 03:40 LDL Cholesterol, Calc 168 mg/dL (50-129) H 04/04/25 03:40 HDL Cholesterol 48 mg/dL (60-100) L 04/04/25 03:40 LDL/HDL Ratio 3.50 RATIO (0.00-3.22) H 04/04/25 03:40 Cholesterol/HDL Ratio 5.44 mg/dL (0.0-4.40) H 04/04/25 03:40 Urine Color Yellow (Yellow) 04/05/25 10:57 Urine Appearance Clear (CLEAR) 04/05/25 10:57 Urine pH 5.0 (5-7) 04/05/25 10:57 Ur Specific [place] 1.020 (1.005-1.030) 04/05/25 10:57 Urine Protein Trace (Negative) A 04/05/25 10:57 Urine Glucose (UA) 1+ (Normal) H 04/05/25 10:57 Urine Ketones 1+ (Negative) H 04/05/25 10:57 Urine Blood 2+ (Negative) A 04/05/25 10:57 Urine Nitrate Negative (Negative) 04/05/25 10:57 Urine Bilirubin Negative (Negative) 04/05/25 10:57 Urine Urobilinogen 0.2 mg/dL (Negative) 04/05/25 10:57 Ur Leukocyte Esterase Negative (Negative) 04/05/25 10:57 Urine RBC 6-10 /hpf (0-2) 04/05/25 10:57 Urine WBC 0-5 /hpf (0-5) 04/05/25 10:57 Ur Squamous Epith Cells 0-5 /hpf (0-5) 04/05/25 10:57 Amorphous Sediment Not Reportable 04/05/25 10:57 Urine Bacteria None seen /hpf (NONE) 04/05/25 10:57 Hyaline Casts 2.87 /lpf 04/05/25 10:57 Urine Opiates Screen Negative ng/mL (Negative) 04/03/25 12:55 Ur Barbiturates Screen Negative ng/mL (Negative) 04/03/25 12:55 Ur Phencyclidine Scrn Negative ng/mL (Negative) 04/03/25 12:55 Ur Amphetamines Screen Negative ng/mL (Negative) 04/03/25 12:55 U Benzodiazepines Scrn Negative ng/mL (Negative) 04/03/25 12:55 Urine Cocaine Screen Negative ng/mL (Negative) 04/03/25 12:55 U Marijuana (THC) Screen Negative ng/mL (Negative) 04/03/25 12:55 Radiology Impressions Head/Neck CTA 04/03/25 12:49 IMPRESSION: Unremarkable head and neck CTA Chest X-Ray 04/05/25 07:47 Impression: Atherosclerosis. Head MRI 04/05/25 07:48 IMPRESSION: 1. Acute dorsal lateral RIGHT medulla infarct. No hemorrhage. 2. No additional acute infarct. 3. Moderate T2 and FLAIR signal hyperintensities throughout the white matter. More than expected for a patient of this age. This can be related to small vessel disease, hypertension, diabetes and smoking. Modified Barium Swallow 04/06/25 10:43 Impression: 1. Good oral preparation with minimal residue. 2. Good hypopharyngeal function. 3. No aspiration or penetration. Head CT 04/06/25 18:56 IMPRESSION: No acute intracranial finding. ASSESSMENT: ASPECTS ([place] Stroke Program Early CT Score) is 10. ADDENDUM: 04/06/251951 Addendum: THIS REPORT CONTAINS FINDINGS THAT MAY BE CRITICAL TO PATIENT CARE. The findings were verbally communicated via telephone conference with Neck studyLimitations: The absence of intravenous contrast lessens the sensitivity of this study for solid organ abnormalities. Limitations: Study somewhat limited due to streak artifact created by the patient being scanned with the arms at the sides. Multiple calcified gallstones are present. at 7:50 PM CDT on 04/06/2025. The findings were acknowledged and understood. Recent Clincial Data Last Vital Signs Temp 97.6 F 04/09/25 04:00 Pulse 49 L 04/09/25 08:30 Resp 12 04/09/25 08:30 BP 147/79 04/09/25 08:30 Pulse Ox 100 04/09/25 08:30 O2 Del Method Room Air 04/09/25 06:00 Vital Signs Temp Pulse Resp BP Pulse Ox O2 Del Method 04/09/25 08:30 49 L 12 147/79 100 04/09/25 08:00 56 L 14 147/79 98 04/09/25 07:30 61 16 155/83 96 04/09/25 07:00 66 16 128/81 95 04/09/25 06:30 54 L 9 L 128/81 94 04/09/25 06:00 59 L 19 H 128/81 95 Room Air 04/09/25 05:56 57 L 04/09/25 05:30 62 18 132/75 98 Room Air 04/09/25 05:00 64 15 132/75 97 Room Air 04/09/25 04:30 59 L 13 120/73 97 Room Air 04/09/25 04:00 97.6 F 64 15 120/73 95 Room Air 04/09/25 03:30 64 14 122/75 95 Room Air 04/09/25 03:00 65 20 H 122/75 95 Room Air 04/09/25 02:30 66 14 146/69 96 Room Air 04/09/25 02:00 58 L 18 146/69 97 Room Air 04/09/25 01:30 67 15 118/73 94 Room Air 04/09/25 01:00 66 14 118/73 94 Room Air 04/09/25 00:30 65 14 136/74 94 Room Air 04/09/25 00:00 98.0 F 62 18 136/74 94 Room Air 04/08/25 23:30 62 16 126/76 95 Room Air 04/08/25 23:00 73 15 126/76 97 Room Air 04/08/25 22:30 64 20 H 127/74 95 Room Air 04/08/25 22:00 65 04/08/25 22:00 64 20 H 127/74 95 Room Air Intake & Output/Weight 04/07/25 04/08/25 04/09/25 04/10/25 06:59 06:59 06:59 06:59 Intake Total 2220.233 / 2220.233 1660.934 / 1660.934 890 / 890 Output Total 1999 600 / 600 100 / 100 Balance 220.233 / 351.169 7476.934 / 1060.934 790 / 790 Weight 88.8 kg 86 kg 82 kg Vitals Last Vital Signs Temp 97.6 F 04/09/25 04:00 Pulse 49 L 04/09/25 08:30 Resp 12 04/09/25 08:30 BP 147/79 04/09/25 08:30 Pulse Ox 100 04/09/25 08:30 O2 Del Method Room Air 04/09/25 06:00 TS Medications Medications Alprazolam (Alprazolam 0.5 Mg Tablet) 0.25 mg PO BID [facility] Last Admin: 04/08/25 17:21 Dose: 0.25 mg Amlodipine Besylate (Amlodipine 5 Mg Tablet) 10 mg PO DAILY [facility] Aspirin (Aspirin 325 Mg Tablet) 325 mg PO DAILY [facility] Last Admin: 04/08/25 08:02 Dose: 325 mg Atorvastatin Calcium (Atorvastatin 40 Mg Tablet) 80 mg PO BEDTIME [facility] Last Admin: 04/08/25 20:55 Dose: 80 mg Clopidogrel Bisulfate (Clopidogrel 75 Mg Tablet) 75 mg PO DAILY [facility] Last Admin: 04/08/25 08:06 Dose: 75 mg Glucagon (Glucagon 1 Mg/Ml Kit 1 Ml) 1 mg IM ONCE PRN; Protocol PRN Reason: Adult Acute Hypoglycemia Nursing Prot. Dextrose (D5w) 500 mls @ 0 mls/hr IV ONCE PRN; Protocol PRN Reason: Adult Acute Hypoglycemia Prot Dextrose (D10w) 125 mls @ 750 mls/hr IV PRN PRN; Protocol PRN Reason: Adult Acute Hypoglycemia Nursing Protocol Dextrose (D10w) 250 mls @ 1,000 mls/hr IV PRN PRN; Protocol PRN Reason: Adult Acute Hypoglycemia Nursing Protocol Insulin Glargine (Insulin Glargine 100 Units/1 Ml) 5 unit SUBCUT BEDTIME [facility] Last Admin: 04/08/25 20:55 Dose: 5 unit Insulin Human Lispro (Insulin Lispro 100 Unit/1 Ml) 0 unit SUBCUT WM&BEDTIME GRETCHEN; Protocol Last Admin: 04/08/25 20:56 Dose: 2 unit Losartan Potassium (Losartan 50 Mg Tablet) 25 mg PO DAILY [facility] Last Admin: 04/08/25 08:03 Dose: 25 mg Discontinued Medications Amlodipine Besylate (Amlodipine 5 Mg Tablet) 5 mg PO DAILY [facility] Last Admin: 04/05/25 08:13 Dose: Not Given Amlodipine Besylate (Amlodipine 5 Mg Tablet) 5 mg PO DAILY [facility] Last Admin: 04/06/25 11:36 Dose: 5 mg Amlodipine Besylate (Amlodipine 5 Mg Tablet) 10 mg PO DAILY [facility] Last Admin: 04/06/25 13:04 Dose: Not Given Amlodipine Besylate (Amlodipine 5 Mg Tablet) 5 mg PO DAILY [facility] Last Admin: 04/07/25 08:16 Dose: 5 mg Amlodipine Besylate (Amlodipine 10 Mg Tablet) 10 mg PO DAILY [facility] Last Admin: 04/07/25 10:42 Dose: Not Given Amlodipine Besylate (Amlodipine 5 Mg Tablet) 5 mg PO ONCE ONE Stop: 04/07/25 10:43 Last Admin: 04/07/25 11:05 Dose: 5 mg Amlodipine Besylate (Amlodipine 5 Mg Tablet) 5 mg PO DAILY [facility] Last Admin: 04/08/25 08:04 Dose: 5 mg Amlodipine Besylate (Amlodipine 5 Mg Tablet) 5 mg PO ONCE ONE Stop: 04/08/25 10:43 Last Admin: 04/08/25 11:29 Dose: 5 mg Aspirin (Aspirin 81 Mg Ec Tablet) 81 mg PO DAILY [facility] Last Admin: 04/05/25 08:13 Dose: Not Given Aspirin (Aspirin 325 Mg Tablet) 325 mg PO DAILY [facility] Aspirin (Aspirin 300 Mg Supp) 300 mg MO DAILY [facility] Last Admin: 04/06/25 08:57 Dose: 300 mg Atorvastatin Calcium (Atorvastatin 40 Mg Tablet) 20 mg PO BEDTIME [facility] Atorvastatin Calcium (Atorvastatin 40 Mg Tablet) 40 mg PO BEDTIME [facility] Last Admin: 04/03/25 21:46 Dose: Not Given Atropine Sulfate (Atropine 0.1 Mg/Ml Syr 10 Ml) 1 mg IVP ONCE ONE Stop: 04/07/25 18:16 Last Admin: 04/07/25 19:05 Dose: Not Given Carvedilol (Carvedilol 12.5 Mg Tablet) 12.5 mg PO BID [facility] Last Admin: 04/07/25 09:41 Dose: 12.5 mg Clopidogrel Bisulfate (Clopidogrel 75 Mg Tablet) 75 mg PO DAILY [facility] Glucagon (Glucagon 1 Mg/Ml Kit 1 Ml) 1 mg IM ONCE PRN; Protocol PRN Reason: Adult Acute Hypoglycemia Nursing Prot. Hydralazine HCl (Hydralazine 20 Mg/Ml Inj 1 Ml) 10 mg IVP ONCE ONE Stop: 04/03/25 11:19 Last Admin: 04/03/25 11:29 Dose: 10 mg Hydralazine HCl (Hydralazine 20 Mg/Ml Inj 1 Ml) 10 mg IVP ONCE ONE Stop: 04/06/25 16:56 Last Admin: 04/06/25 17:09 Dose: 10 mg Nicardipine/Sodium Chloride (Cardene) 20 mg in 200 mls @ 0 mls/hr IV .Q0M [facility]; Protocol Last Titration: 04/05/25 02:30 Dose: 0 mg/hr, 0 mls/hr Dextrose (D5w) 500 mls @ 0 mls/hr IV ONCE PRN; Protocol PRN Reason: Adult Acute Hypoglycemia Prot Dextrose (D10w) 125 mls @ 750 mls/hr IV PRN PRN; Protocol PRN Reason: Adult Acute Hypoglycemia Nursing Protocol Dextrose (D10w) 250 mls @ 1,000 mls/hr IV PRN PRN; Protocol PRN Reason: Adult Acute Hypoglycemia Nursing Protocol Potassium Chloride/Sodium Chloride (Sodium Chlor 0.45% +Kcl 20 Meq) 20 meq in 1,000 mls @ 75 mls/hr IV .[id number] [facility] Last Infusion: 04/03/25 18:54 Dose: 0 mls/hr Sodium Chloride (Sodium Chloride 0.45%) 1,000 mls @ 75 mls/hr IV .[id number] [facility] Last Admin: 04/04/25 11:44 Dose: 75 mls/hr Sodium Chloride (Sodium Chloride 0.9%) 1,000 mls @ 125 mls/hr IV .Q8H [facility] Last Infusion: 04/06/25 11:41 Dose: 0 mls/hr Sodium Chloride (Sodium Chloride 0.9%) 1,000 mls @ 999 mls/hr IV .Q1H1M ONE Stop: 04/04/25 16:53 Last Infusion: 04/04/25 19:23 Dose: Infused Magnesium Sulfate (Magnesium Sulfate Premix) 2 gm in 50 mls @ 50 mls/hr IV ONCE ONE Stop: 04/05/25 09:03 Last Admin: 04/05/25 08:18 Dose: 50 mls/hr Multivitamins 10 ml/ Amino (Acids/Electrolytes/Dextrose) 1,010 mls @ 83 mls/hr IV .[id number] [facility] Last Admin: 04/07/25 23:35 Dose: Not Given Insulin Human Lispro (Insulin Lispro 100 Unit/1 Ml) 0 unit SUBCUT BEDTIME [facility]; Protocol Last Admin: 04/03/25 21:47 Dose: 5 unit Insulin Human Lispro (Insulin Lispro 100 Unit/1 Ml) 0 unit SUBCUT TIDWM [facility]; Protocol Last Admin: 04/04/25 12:41 Dose: 4 unit Insulin Human Lispro (Insulin Lispro 100 Unit/1 Ml) 0 unit SUBCUT Q6H [facility]; Protocol Last Admin: 04/08/25 05:03 Dose: 2 unit Iohexol (Iohexol 350 Mg/Ml 500 Ml Btl (Per Ml)) 0 ml IV ONCE ONE Stop: 04/03/25 13:49 Last Admin: 04/03/25 13:48 Dose: 100 ml Labetalol HCl (Labetalol 5 Mg/Ml Sdv 20ml) 10 mg IVP ONCE ONE Stop: 04/03/25 11:01 Last Admin: 04/03/25 11:29 Dose: Not Given Labetalol HCl (Labetalol 5 Mg/Ml Sdv 20ml) 10 mg IVP ONCE ONE Stop: 04/03/25 11:53 Last Admin: 04/03/25 11:54 Dose: 10 mg Lorazepam (Lorazepam 1 Mg/0.5 Ml Injection) 0.25 mg IVP Q4H PRN PRN Reason: ANXIETY Last Admin: 04/05/25 03:01 Dose: 0.25 mg Lorazepam (Lorazepam 1 Mg/0.5 Ml Injection) Confirm Administered Dose 1 mg .ROUTE .STK-MED ONE Stop: 04/05/25 02:59 Potassium Chloride (Potassium Chloride Oral Liq 20 Meq/15 Ml Udc) 40 meq PO ONCE ONE Stop: 04/07/25 05:06 Last Admin: 04/07/25 06:07 Dose: 40 meq Potassium Chloride (Potassium Chloride Oral Liq 20 Meq/15 Ml Udc) 40 meq PO ONCE ONE Stop: 04/08/25 13:57 Last Admin: 04/08/25 14:27 Dose: 40 meq Prochlorperazine Edisylate (Prochlorperazine 10 Mg/2 Ml Inj) 10 mg IVP ONCE ONE Stop: 04/03/25 11:19 Last Admin: 04/03/25 11:29 Dose: 10 mg Tenecteplase (Tenecteplase 50mg Kit (Stroke)) Confirm Administered Dose 50 mg .ROUTE .STK-MED ONE Stop: 04/03/25 11:57 Tenecteplase (Tenecteplase 50mg Kit (Stroke)) 25 mg 0.25 mg/kg (25 mg) IVP ONCE ONE; Protocol Stop: 04/03/25 12:33 Last Admin: 04/03/25 12:32 Dose: 25 mg Allergies ibuprofen Allergy (Verified 04/03/25 11:24) Unknown Penicillins Allergy (Verified 04/03/25 11:24) Unknown Home Medications No Known Home Medications 04/03/25 [History Confirmed 04/03/25] Discharge Plan Discharge Patient Disposition: Xfer Short-Term Hosp Condition: Stable Prescriptions: No Action No Known Home Medications Patient Instructions: Type 2 Diabetes, Diabetes and Diet, Ischemic Stroke (DC) Transfer Attestations Time Spent in Transfer Care: greater than 30 min Quality Metrics Clinical Quality Measures [ Cerebrovascular Accident { Contraindication to Antithrombotic: None; antithrombotic prescribed; Contraindication to Anticoagulation: Overlap treatment not indicated; Contraindication to Statin: None; Statin prescribed; Contraindication to tPA: None; TPA given; Symptom Onset Unknown: Yes; Reason stroke education not provided: Stroke education provided to patient; Rehab services assessed: Rehabilitation assessment, Physical therapy, Occupational therapy, Speech therapy, Stroke rehabilitation; Reason rehab assessment not done: Rehab assessment done}] Coding Level of Care Code Acute Code for [facility] [place] Fwd Diagnoses Cerebrovascular accident (CVA) due to thrombosis of right posterior cerebral artery I63.331 CVA mechanism: thrombosis Precerebral and cerebral artery: posterior cerebral artery Laterality of affected vessel: right Other secondary hypertension I15.8 Hypertension type: other secondary hypertension Type 2 diabetes mellitus with hyperglycemia, without long-term current use of insulin E11.65 Diabetes mellitus complication status: with hyperglycemia Diabetes mellitus [facility] insulin use: without [facility] use Grade I hemorrhoids K64.0 Hemorrhoid type: first degree Dysphagia R13.10 Tachycardia R00.0 Posterior circulation stroke I63.50 On parenteral nutrition Z78.9 Hypomagnesemia E83.42 Fever R50.9
[2025-04-09 09:38] LABS: Glucose Point of Care 137 mg/dL (70-110)
[2025-04-09] MEDS: losartan 50 mg Tablet 25 MG PO (09:44)
[2025-04-09] MEDS: ALPRAZolam 0.5 mg Tablet 0.25 MG PO (09:44)
[2025-04-09] MEDS: clopidogrel 75 mg Tablet PO (09:45)
[2025-04-09] MEDS: amlodipine 5 mg Tablet 10 MG PO (09:45)
[2025-04-09] MEDS: aspirin 325 mg Tablet PO (09:45)
[2025-04-09 12:13] LABS: Glucose Point of Care 160 mg/dL (70-110)
--- NOTE | 2025-04-09 13:47 | PC.NURSE ---
Pt was discharged via EMS at 1315. Belongings including suite case, house mccall, purse, glasses, phone and phone systems test analyst sent with patient. Car keys sent home with daughter. Patient had on a pair of glasses when discharged but she stated that she dropped a pair in the floor a few days prior and staff had not been able to find them. When EVS cleans the room we will look for glasses.
== END 2025-04-09 13:15 | disposition short-term general hospital (02) | DRG 62 ==
LOC: ER 11:00 → ICU 12:53
PROVIDERS: Admitting Provider Hospitalist; Emergency Provider Family Medicine; Visit Provider Internal Medicine
DX: I63.331 Cerebral infarction due to thrombosis of right posterior cerebral artery (principal); G81.94 Hemiplegia, unspecified affecting left nondominant side; R13.10 Dysphagia, unspecified; I15.9 Secondary hypertension, unspecified; E11.65 Type 2 diabetes mellitus with hyperglycemia; K64.0 First degree hemorrhoids; R00.0 Tachycardia, unspecified; E83.42 Hypomagnesemia; F41.9 Anxiety disorder, unspecified; Z86.73 Personal history of transient ischemic attack (TIA), and cerebral infarction without residual deficits; Z79.02 Long term (current) use of antithrombotics/antiplatelets; Z79.82 Long term (current) use of aspirin; T45.526A Underdosing of antithrombotic drugs, initial encounter; T39.016A Underdosing of aspirin, initial encounter; Z91.128 Patient's intentional underdosing of medication regimen for other reason; I95.9 Hypotension, unspecified; R00.1 Bradycardia, unspecified; R74.8 Abnormal levels of other serum enzymes
CPT/HCPCS: 36415; 36416; 51702; 70450; 70496; 70498; 70551; 71045; 74230; 80048; 80053; 80061; 80306; 81001; 82962; 83036; 83735; 84100; 84484; 85025; 85610; 85730; 92523; 92526; 92610; 92611; 93005; 93306; 93308; 96365; 96366; 96372; 96374; 96375; 96376; 97110; 97116; 97162; 97167; 97530; 97535; 99291; 99292; J0360; J0780; J1815; J2060; J2404; J3101; J3475; J3480; J3490; J7030; J9999

== ENCOUNTER → 2025-06-05 14:43 | Outpatient (BNVA) | payer MEDICARE, SELFPAY | PROVIDERS: Referring Provider Physical Medicine & Rehabilitation; Visit Provider Specialist | DX: I63.50 Cerebral infarction due to unspecified occlusion or stenosis of unspecified cerebral artery (principal); I10 Essential (primary) hypertension; E11.9 Type 2 diabetes mellitus without complications | CPT/HCPCS: 99205 ==